=== PATIENT | male | born 1980 | race Caucasian/White ===

== ENCOUNTER 2019-04-24 13:20 | Emergency (ER) | payer MEDICAID, SELFPAY ==
[2019-04-24 12:48] VITALS: BP 116/69; PULSE 58; RESP 18; O2SAT 99; BMI 18.2
--- NOTE | 2019-04-24 12:52 | ED_ITS ---
Entered by [id number], acting as scribe for Zoie Gutierrez Apr 24, 2019 13:20 HPI - General Adult General: Chief complaint: Seizure Stated complaint: seizures Time Seen by Provider: 04/24/19 12:55 PFSH ED PFSH: Statuses (acute, chronic, etc) shown below reflect problem list status as previously entered and may not be historically accurate Social History Smoking and tobacco status: current every day smoker Course Vital Signs: Vital signs: Vital Signs Pulse Rate 58 L 04/24/19 12:48 Respiratory Rate 18 04/24/19 12:48 Blood Pressure 116/69 04/24/19 12:48 Pulse Oximetry 99 04/24/19 12:48 MDM - General Adult Lab Data: Labs: Lab Results 04/24/19 04/24/19 04/24/19 Range/Units 13:28 13:28 13:37 WBC 9.7 (4.0-10.0) 10^3/ uL RBC 5.46 H (4.1-5.3) 10^6/u L Hgb 17.1 H (11.7-16.6) g/dL Hct 50.1 (42.0-52.0) % MCV 91.8 (80-94) fL MCH 31.3 (28.0-34.0) pg MCHC 34.1 (30.0-36.0) g/dL RDW 13.3 (12.1-15.1) % Plt Count 168 (130-400) 10^3/c mm MPV 10.4 (7.4-10.4) fL Neut % (Auto) 75.4 % Lymph % (Auto) 15.1 % [place] % (Auto) 7.7 % Eos % (Auto) 0.9 % Baso % (Auto) 0.6 % Neut # (Auto) 7.3 (1.8-7.7) 10^3/u L Lymph # (Auto) 1.5 (0.8-4.8) 10^3/u L [place] # (Auto) 0.8 (0.2-0.9) 10^3/u L Eos # (Auto) 0.1 (0.0-0.8) 10^3/u L Baso # (Auto) 0.1 (0.0-0.1) 10^3/u L Nucleated RBC % (a uto) 0 % Nucleated RBCs # 0.0 /100WBC Sodium (136-145) mmol/L Potassium (3.5-5.1) mmol/L Chloride (98-107) mmol/L Carbon Dioxide (22-29) mmol/L Anion Gap (5-19) BUN (6-20) mg/dL Creatinine (0.7-1.2) mg/dL GFR Calculation (90-130) mL/min Glucose (74-109) mg/dL Calcium (8.6-10.0) mg/Dl Magnesium (1.7-2.3) mg/dL Total Bilirubin (0.15-1.2) mg/dL AST (0-40) U/L ALT (0-41) U/L Alkaline Phosphata se (40-130) IU/L Total Protein (6.6-8.7) g/dL Albumin (3.5-5.2) g/dL Globulin (1.3-4.6) g/dL Urine Color Yellow (Yellow) Urine Appearance Clear (CLEAR) Urine pH 8 H (5-7) Ur Specific Gravit y 1.010 (1.005-1.030) Urine Protein Neg (Negative) Urine Glucose (UA) Norm (Normal) Urine Ketones Negative (Negative) Urine Occult Blood Neg (Negative) Urine Nitrate Negative (Negative) Urine Bilirubin Neg (NEGATIVE) Prot Sulfosalicyli c Acd Negative Urine Urobilinogen Norm (Negative) mg/dL Ur Leukocyte Lila ase Negative (Negative) Urine Opiates Scre en Negative (Negative) ng/mL Ur Barbiturates Sc reen Negative (Negative) ng/mL Valproic Acid (50-100) mcg/mL Ur Phencyclidine S crn Negative (Negative) ng/mL Ur Amphetamines Sc reen Negative (Negative) ng/mL U Benzodiazepines Scrn Negative (Negative) ng/mL Urine Cocaine Scre en Negative (Negative) ng/mL U Marijuana (THC) Screen Positive H (Negative) ng/mL Ethyl Alcohol (0-10) mg/dL 04/24/19 Range/Units 13:37 WBC (4.0-10.0) 10^3/ uL RBC (4.1-5.3) 10^6/u L Hgb (11.7-16.6) g/dL Hct (42.0-52.0) % MCV (80-94) fL MCH (28.0-34.0) pg MCHC (30.0-36.0) g/dL RDW (12.1-15.1) % Plt Count (130-400) 10^3/c mm MPV (7.4-10.4) fL Neut % (Auto) % Lymph % (Auto) % [place] % (Auto) % Eos % (Auto) % Baso % (Auto) % Neut # (Auto) (1.8-7.7) 10^3/u L Lymph # (Auto) (0.8-4.8) 10^3/u L [place] # (Auto) (0.2-0.9) 10^3/u L Eos # (Auto) (0.0-0.8) 10^3/u L Baso # (Auto) (0.0-0.1) 10^3/u L Nucleated RBC % (a uto) % Nucleated RBCs # /100WBC Sodium 138 (136-145) mmol/L Potassium 4.1 (3.5-5.1) mmol/L Chloride 100 (98-107) mmol/L Carbon Dioxide 27 (22-29) mmol/L Anion Gap 15.1 (5-19) BUN 9 (6-20) mg/dL Creatinine 0.7 (0.7-1.2) mg/dL GFR Calculation 124.3 (90-130) mL/min Glucose 98 (74-109) mg/dL Calcium 10.1 H (8.6-10.0) mg/Dl Magnesium 2.2 (1.7-2.3) mg/dL Total Bilirubin 0.3 (0.15-1.2) mg/dL AST 14 (0-40) U/L ALT 8 (0-41) U/L Alkaline Phosphata se 86 (40-130) IU/L Total Protein 7.5 (6.6-8.7) g/dL Albumin 5.0 (3.5-5.2) g/dL Globulin 2.5 (1.3-4.6) g/dL Urine Color (Yellow) Urine Appearance (CLEAR) Urine pH (5-7) Ur Specific Gravit y (1.005-1.030) Urine Protein (Negative) Urine Glucose (UA) (Normal) Urine Ketones (Negative) Urine Occult Blood (Negative) Urine Nitrate (Negative) Urine Bilirubin (NEGATIVE) Prot Sulfosalicyli c Acd Urine Urobilinogen (Negative) mg/dL Ur Leukocyte Lila ase (Negative) Urine Opiates Scre en (Negative) ng/mL Ur Barbiturates Sc reen (Negative) ng/mL Valproic Acid 54.8 (50-100) mcg/mL Ur Phencyclidine S crn (Negative) ng/mL Ur Amphetamines Sc reen (Negative) ng/mL U Benzodiazepines Scrn (Negative) ng/mL Urine Cocaine Scre en (Negative) ng/mL U Marijuana (THC) Screen (Negative) ng/mL Ethyl Alcohol < 10 (0-10) mg/dL Coding Level of Care Code ED Test Case Developer for Wes Lombardo The documentation recorded by the niles, [id number], accurately reflects the service I personally performed and the decisions made by Matt mcdaniel Eli N Apr 24, 2019 13:20
--- NOTE | 2019-04-24 13:09 | ED_ITS ---
Entered by Francheska Ramirez, acting as scribe for Zoie Gutierrez HPI - Seizure General: Chief Complaint: Seizure Stated Complaint: seizures Time Seen by Provider: 04/24/19 12:55 Source: patient Mode of arrival: EMS Limitations: no limitations History of Present Illness: HPI Narrative: 39 yo male presents to ED with complaints of a seizure. The patient states he had one in the middle of the night and another one just prior to arrival today. The patient said he messed up his medications and he subsequently had 2 seizures. MD complaint: seizure Onset (ago): hour(s) Trauma: No Seizure History: Yes Associated symptoms: Deny chest pain, chills, confusion, diaphoresis, fever(s), malaise or syncope Review of Systems General: Reports: other (negative unless marked) Const: Denies: fever, chills, body aches, fatigue, malaise or diaphoresis Eyes: Denies: change in vision or blurry vision ENMT: Denies: throat pain, painful swallowing, hoarseness, ear pain, ear discharge, Change in hearing or nasal discharge Card: Denies: chest pain, palpitations, irregular heart rhythm, syncope, pre- syncope, shortness of breath on exertion or shortness of breath when lying down Resp: Denies: shortness of breath, productive cough, non-productive cough, wheezing, coughing up blood or chest congestion GI: Denies: abdominal pain, nausea, vomiting, vomiting blood, coffee grounds in vomit, diarrhea, constipation, cramping, blood in stool or black tarry stool : Denies: flank pain, difficulty urinating, painful urination, urinary frequency, urinary urgency, decreased urine ouput, urinary incontinence or blood in urine Musc: Denies: neck pain, back pain, extremity pain, extremity swelling, joint pain, joint swelling, joint warmth or joint stiffness Skin/Breast: Denies: rash, skin tenderness or yellow skin Neuro: Reports: headache; Denies: numbness in extremities, weakness in extremities, changes in sensation, lack of coordination, difficulty walking, dizziness, vertigo or confusion Endo: Denies: excessive thirst, tired all the time, cold intolerance, excessive sweating, flushing or hot flashes Ronn/Lymph: Denies: easy bruising, easy bleeding, petechiae or enlarged lymph nodes All/Imm: Denies: hives, throat swelling, tongue swelling, facial swelling or acute wheezing PFSH ED PFSH: Statuses (acute, chronic, etc) shown below reflect problem list status as previously entered and may not be historically accurate Social History Smoking and tobacco status: current every day smoker Physical Exam Const: COMMON NORMALS: no apparent distress, oriented x3, no limitations, healthy appearing and well nourished EXAM LIMITATIONS: no altered mental status GENERAL APPEARANCE: cooperative, well kempt and well developed ORIENTATION/CONSCIOUSNESS: Yes awake HENMT: COMMON NORMALS: normocephalic, head/scalp atraumatic, hearing grossly normal bilaterally, external ears normal, EAC's normal, external nose normal and moist oral mucous membranes HEAD & SCALP: normal to inspection, normocephalic and atraumatic FACE & SINUS: normal facial exam and face symmetric NOSE: external nose normal and nares normal EXTERNAL EAR: Yes external ears normal EXTERNAL AUDITORY CANAL: EAC's normal MOUTH: oral and palatal mucosa normal and tongue normal Eye: COMMON NORMALS: PERRL, EOMs intact bilaterally, conjunctivae normal and no scleral icterus GENERAL EYE: normal appearance of both eyes and normal light reflex CONJUNCTIVA: Yes conjunctivae normal SCLERA: sclerae normal CORNEA: Yes corneas normal PUPIL: Yes PERRL DIRECT OPHTHALMOSCOPY: Yes normal light reflex Neck/C-Spine: COMMON NORMALS: full ROM, no lymphadenopathy, supple, no meningeal signs and no JVD GENERAL: Yes normal visual inspection and Yes trachea midline CERVICAL SPINE: Yes cervical ROM normal Chest: COMMONS NORMALS: inspection of chest normal and palpation of chest normal Resp: COMMON NORMALS: normal respiratory effort, no retractions, no use of accessory muscles and clear to auscultation bilaterally EFFORT & INSPECTION: Yes able to speak in complete sentences AUSCULTATION: clear to auscultation bilaterally Cardio: COMMON NORMALS: no JVD, regular rate, regular rhythm, S1 normal heart sound, S2 normal heart sound, no gallops, no clicks, no murmurs and no rub JUGULAR VENOUS DISTENTION: no JVD RATE: regular rate RHYTHM: regular rhythm HEART SOUNDS: S1 normal and S2 normal GI: COMMON NORMALS: soft to palpation, non-tender, no hepatosplenomegaly and no masses INSPECTION: Yes normal to inspection PALPATION: Yes soft and Yes no hepatosplenomegaly : COMMON NORMALS: Yes no CVA tenderness BLADDER/KIDNEY EXAM: Yes no CVA tenderness Back/Pelvis: COMMON NORMALS: no CVA tenderness, thoracic and lumbar spine normal to inspection, no thoracic nor lumbar tenderness and thoraco-lumbar ROM normal Extremity: COMMON NORMALS: normal to inspection, full ROM, normal capillary refill, no joint enlargement, no clubbing, cyanosis or edema and no calf tenderness Neuro: COMMON NORMALS: oriented x3, CN's II-XII intact bilaterally, moves all extremities, no focal motor deficits and no sensory deficits noted MENINGEAL SIGNS: Yes no meningeal signs Psych: COMMON NORMALS: mental status grossly normal, thought process normal, cooperative, affect normal, speech normal and activity/motor behavior normal APPEARANCE: Yes well kempt SPEECH: Yes normal speech THOUGHT PROCESS: normal thought process Skin: COMMON NORMALS: no rashes or lesions noted, skin turgor normal, no jaundice, no petechiae and no mottling GENERAL SKIN EXAM: no rashes or lesions noted and turgor normal Course Vital Signs: Vital signs: Vital Signs Pulse Rate 58 L 04/24/19 12:48 Respiratory Rate 18 04/24/19 12:48 Blood Pressure 116/69 04/24/19 12:48 Pulse Oximetry 99 04/24/19 12:48 MDM - Seizure MDM Narrative: Medical decision making narrative: Hugh comes in after he had a breakthrough seizure today. He is uncertain whether he took his medications appropriately and he has been going without sleep. He has no neurologic deficit this time I do not believe a CT scan to be indicated. He denies any other injuries or pain. He is feeling better at this time would like to go home. I did give him a milligram of Ativan to help ashley any recurrent seizures. He agrees to follow-up with Dr. Villalobos. I see no other sign or symptom of acute life-threatening problem. He will follow-up as directed or return here if needed. Lab Data: Attestation: I reviewed the patient's lab results. Labs: Lab Results 04/24/19 04/24/19 04/24/19 Range/Units 13:28 13:28 13:37 WBC 9.7 (4.0-10.0) 10^3/ uL RBC 5.46 H (4.1-5.3) 10^6/u L Hgb 17.1 H (11.7-16.6) g/dL Hct 50.1 (42.0-52.0) % MCV 91.8 (80-94) fL MCH 31.3 (28.0-34.0) pg MCHC 34.1 (30.0-36.0) g/dL RDW 13.3 (12.1-15.1) % Plt Count 168 (130-400) 10^3/c mm MPV 10.4 (7.4-10.4) fL Neut % (Auto) 75.4 % Lymph % (Auto) 15.1 % [place] % (Auto) 7.7 % Eos % (Auto) 0.9 % Baso % (Auto) 0.6 % Neut # (Auto) 7.3 (1.8-7.7) 10^3/u L Lymph # (Auto) 1.5 (0.8-4.8) 10^3/u L [place] # (Auto) 0.8 (0.2-0.9) 10^3/u L Eos # (Auto) 0.1 (0.0-0.8) 10^3/u L Baso # (Auto) 0.1 (0.0-0.1) 10^3/u L Nucleated RBC % (a uto) 0 % Nucleated RBCs # 0.0 /100WBC Sodium (136-145) mmol/L Potassium (3.5-5.1) mmol/L Chloride (98-107) mmol/L Carbon Dioxide (22-29) mmol/L Anion Gap (5-19) BUN (6-20) mg/dL Creatinine (0.7-1.2) mg/dL GFR Calculation (90-130) mL/min Glucose (74-109) mg/dL Calcium (8.6-10.0) mg/Dl Magnesium (1.7-2.3) mg/dL Total Bilirubin (0.15-1.2) mg/dL AST (0-40) U/L ALT (0-41) U/L Alkaline Phosphata se (40-130) IU/L Total Protein (6.6-8.7) g/dL Albumin (3.5-5.2) g/dL Globulin (1.3-4.6) g/dL Urine Color Yellow (Yellow) Urine Appearance Clear (CLEAR) Urine pH 8 H (5-7) Ur Specific Gravit y 1.010 (1.005-1.030) Urine Protein Neg (Negative) Urine Glucose (UA) Norm (Normal) Urine Ketones Negative (Negative) Urine Occult Blood Neg (Negative) Urine Nitrate Negative (Negative) Urine Bilirubin Neg (NEGATIVE) Prot Sulfosalicyli c Acd Negative Urine Urobilinogen Norm (Negative) mg/dL Ur Leukocyte Lila ase Negative (Negative) Urine Opiates Scre en Negative (Negative) ng/mL Ur Barbiturates Sc reen Negative (Negative) ng/mL Valproic Acid (50-100) mcg/mL Ur Phencyclidine S crn Negative (Negative) ng/mL Ur Amphetamines Sc reen Negative (Negative) ng/mL U Benzodiazepines Scrn Negative (Negative) ng/mL Urine Cocaine Scre en Negative (Negative) ng/mL U Marijuana (THC) Screen Positive H (Negative) ng/mL Ethyl Alcohol (0-10) mg/dL 04/24/19 Range/Units 13:37 WBC (4.0-10.0) 10^3/ uL RBC (4.1-5.3) 10^6/u L Hgb (11.7-16.6) g/dL Hct (42.0-52.0) % MCV (80-94) fL MCH (28.0-34.0) pg MCHC (30.0-36.0) g/dL RDW (12.1-15.1) % Plt Count (130-400) 10^3/c mm MPV (7.4-10.4) fL Neut % (Auto) % Lymph % (Auto) % [place] % (Auto) % Eos % (Auto) % Baso % (Auto) % Neut # (Auto) (1.8-7.7) 10^3/u L Lymph # (Auto) (0.8-4.8) 10^3/u L [place] # (Auto) (0.2-0.9) 10^3/u L Eos # (Auto) (0.0-0.8) 10^3/u L Baso # (Auto) (0.0-0.1) 10^3/u L Nucleated RBC % (a uto) % Nucleated RBCs # /100WBC Sodium 138 (136-145) mmol/L Potassium 4.1 (3.5-5.1) mmol/L Chloride 100 (98-107) mmol/L Carbon Dioxide 27 (22-29) mmol/L Anion Gap 15.1 (5-19) BUN 9 (6-20) mg/dL Creatinine 0.7 (0.7-1.2) mg/dL GFR Calculation 124.3 (90-130) mL/min Glucose 98 (74-109) mg/dL Calcium 10.1 H (8.6-10.0) mg/Dl Magnesium 2.2 (1.7-2.3) mg/dL Total Bilirubin 0.3 (0.15-1.2) mg/dL AST 14 (0-40) U/L ALT 8 (0-41) U/L Alkaline Phosphata se 86 (40-130) IU/L Total Protein 7.5 (6.6-8.7) g/dL Albumin 5.0 (3.5-5.2) g/dL Globulin 2.5 (1.3-4.6) g/dL Urine Color (Yellow) Urine Appearance (CLEAR) Urine pH (5-7) Ur Specific Gravit y (1.005-1.030) Urine Protein (Negative) Urine Glucose (UA) (Normal) Urine Ketones (Negative) Urine Occult Blood (Negative) Urine Nitrate (Negative) Urine Bilirubin (NEGATIVE) Prot Sulfosalicyli c Acd Urine Urobilinogen (Negative) mg/dL Ur Leukocyte Lila ase (Negative) Urine Opiates Scre en (Negative) ng/mL Ur Barbiturates Sc reen (Negative) ng/mL Valproic Acid 54.8 (50-100) mcg/mL Ur Phencyclidine S crn (Negative) ng/mL Ur Amphetamines Sc reen (Negative) ng/mL U Benzodiazepines Scrn (Negative) ng/mL Urine Cocaine Scre en (Negative) ng/mL U Marijuana (THC) Screen (Negative) ng/mL Ethyl Alcohol < 10 (0-10) mg/dL Imaging Data^: CXR: My impression: No acute cardiopulmonary findings. Discharge Plan Discharge Patient Disposition: Home, Self-Care Clinical Impression: Generalized seizure Condition: Stable Prescriptions: No Action divalproex 500 mg tablet extended release 24 hr 1,000 mg PO DAILY RF: 0 levetiracetam 1,000 mg tablet 1,000 mg PO BID RF: 0 Discharge Orders: Discharge Order (Routine); Ordered 04/24/19 Ordered By: Zoie Gutierrez Referrals: Jatinder Bryan [Primary Care Provider] - Discharge Diet: Usual diet Discharge Activity: Resume usual activity Patient Instructions: Epilepsy (ED) Activity Restrictions/Additional Instructions: No driving, no tub baths, no swimming alone, no working at heights, no operating machinery or anything else that would put you or anyone else at risk should you have another seizure. Be certain to take your seizure medications as prescribed and follow-up with Dr. Villalobos for further evaluation and care. Coding Level of Care Code ED Roofer for Chg Fwd Exam Problem Focused The documentation recorded by the Ashley cage Valerie R, accurately reflects the service I personally performed and the decisions made by , Zoie Gutierrez
--- NOTE | 2019-04-24 13:11 | XR_ITS ---
WS: [id number] Portable AP upright chest, 04/24/2019 Clinical Data: INJURY Comparison: Portable chest, 10/20/2018. Findings: No nodules, masses or effusions are seen. The heart is normal. The pulmonary vascularity is not increased. No pneumonia or pneumothorax is seen. Negative chest. XR/XR chest 1V portable [id number] Impression:
--- NOTE | 2019-04-24 13:33 | PC.NURSE ---
pt resting in bed, provided urine sample. UA sent to lab. family at bedside, states no further needs at this time.
[2019-04-24 13:50] LABS: Basophils # 0.1 10^3/uL (0.0-0.1); Basophils % 0.6 %; Eosinophils # 0.1 10^3/uL (0.0-0.8); Eosinophils % 0.9 %; Hematocrit 50.1 % (42.0-52.0); Hemoglobin 17.1 g/dL (11.7-16.6); Lymphocytes # 1.5 10^3/uL (0.8-4.8); Lymphocytes % 15.1 %; Mean Corpuscular HGB Conc 34.1 g/dL (30.0-36.0); Mean Corpuscular Hemoglobin 31.3 pg (28.0-34.0); Mean Corpuscular Volume 91.8 fL (80-94); Mean Platelet Volume 10.4 fL (7.4-10.4); Monocytes # 0.8 10^3/uL (0.2-0.9); Monocytes % 7.7 %; Neutrophils # 7.3 10^3/uL (1.8-7.7); Neutrophils % 75.4 %; Nucleated Red Blood Cells % 0 %; Platelet Count 168 10^3/cmm (130-400); Red Blood Count 5.46 10^6/uL (4.1-5.3); Red Cell Distribution Width 13.3 % (12.1-15.1); White Blood Count 9.7 10^3/uL (4.0-10.0)
[2019-04-24 13:53] LABS: Add Urine Microscopic? NO
[2019-04-24 14:07] LABS: Alanine Aminotransferase 8 U/L (0-41); Alkaline Phosphatase 86 IU/L (40-130); Anion Gap 15.1 (5-19); Aspartate Amino Transferase 14 U/L (0-40); Blood Urea Nitrogen 9 mg/dL (6-20); Calcium 10.1 mg/Dl (8.6-10.0); Carbon Dioxide 27 mmol/L (22-29); Chloride 100 mmol/L (98-107); Globulin 2.5 g/dL (1.3-4.6); Glomerular Filtration Rate 124.3 mL/min (90-130); Glucose 98 mg/dL (74-109); Magnesium 2.2 mg/dL (1.7-2.3); Potassium 4.1 mmol/L (3.5-5.1); Sodium 138 mmol/L (136-145); Total Bilirubin 0.3 mg/dL (0.15-1.2); Total Protein 7.5 g/dL (6.6-8.7); Valproic Acid Level 54.8 mcg/mL (50-100)
[2019-04-24 14:15] LABS: Alcohol Level < 10 mg/dL (0-10)
[2019-04-24] MEDS: LORazepam 2 mg/mL INJ 1 mL 1 MG IVP (14:16)
[2019-04-24 14:18] LABS: Bilirubin Urine Neg (NEGATIVE); Blood Urine Neg (Negative); Glucose Urine UA Norm (Normal); Ketones Urine Negative (Negative); Leukocyte Esterase Urine Negative (Negative); Nitrate Urine Negative (Negative); Protein Urine Neg (Negative); Sulfosalicylic Acid Urine Negative; Urine Appearance Clear (CLEAR); Urine Color Yellow (Yellow); Urobilinogen Urine Norm (Negative); pH Urine 8 (5-7)
[2019-04-24] MEDS: sodium chloride 0.9% 1,000 ML 999 ML IV (14:18)
[2019-04-24 14:25] LABS: Amphetamines Screen Urine Negative (Negative); Barbiturates Screen Urine Negative (Negative); Benzodiazepines Screen Urine Negative (Negative); Cocaine Screen Urine Negative (Negative); Opiate Screen Urine Negative (Negative); PCP Screen Urine Negative (Negative); THC Screen Urine Positive (Negative)
--- NOTE | 2019-04-24 14:49 | W.ED.SEIZURE ---
HPI - Seizure General: Chief Complaint: Seizure Stated Complaint: seizures Time Seen by Provider: 04/24/19 12:55 History of Present Illness: Trauma: No Seizure History: Yes PFSH ED PFSH: Statuses (acute, chronic, etc) shown below reflect problem list status as previously entered and may not be historically accurate Social History Smoking and tobacco status: current every day smoker Course Vital Signs: Vital signs: Vital Signs Pulse Rate 74 04/24/19 16:06 Respiratory Rate 16 04/24/19 16:06 Blood Pressure 115/87 04/24/19 16:06 Pulse Oximetry 98 04/24/19 16:06 MDM - Seizure Lab Data: Attestation: I reviewed the patient's lab results. Labs: Lab Results 04/24/19 04/24/19 04/24/19 Range/Units 13:28 13:28 13:37 WBC 9.7 (4.0-10.0) 10^3/ uL RBC 5.46 H (4.1-5.3) 10^6/u L Hgb 17.1 H (11.7-16.6) g/dL Hct 50.1 (42.0-52.0) % MCV 91.8 (80-94) fL MCH 31.3 (28.0-34.0) pg MCHC 34.1 (30.0-36.0) g/dL RDW 13.3 (12.1-15.1) % Plt Count 168 (130-400) 10^3/c mm MPV 10.4 (7.4-10.4) fL Neut % (Auto) 75.4 % Lymph % (Auto) 15.1 % [place] % (Auto) 7.7 % Eos % (Auto) 0.9 % Baso % (Auto) 0.6 % Neut # (Auto) 7.3 (1.8-7.7) 10^3/u L Lymph # (Auto) 1.5 (0.8-4.8) 10^3/u L [place] # (Auto) 0.8 (0.2-0.9) 10^3/u L Eos # (Auto) 0.1 (0.0-0.8) 10^3/u L Baso # (Auto) 0.1 (0.0-0.1) 10^3/u L Nucleated RBC % (a uto) 0 % Nucleated RBCs # 0.0 /100WBC Sodium (136-145) mmol/L Potassium (3.5-5.1) mmol/L Chloride (98-107) mmol/L Carbon Dioxide (22-29) mmol/L Anion Gap (5-19) BUN (6-20) mg/dL Creatinine (0.7-1.2) mg/dL GFR Calculation (90-130) mL/min Glucose (74-109) mg/dL Calcium (8.6-10.0) mg/Dl Magnesium (1.7-2.3) mg/dL Total Bilirubin (0.15-1.2) mg/dL AST (0-40) U/L ALT (0-41) U/L Alkaline Phosphata se (40-130) IU/L Total Protein (6.6-8.7) g/dL Albumin (3.5-5.2) g/dL Globulin (1.3-4.6) g/dL Urine Color Yellow (Yellow) Urine Appearance Clear (CLEAR) Urine pH 8 H (5-7) Ur Specific Gravit y 1.010 (1.005-1.030) Urine Protein Neg (Negative) Urine Glucose (UA) Norm (Normal) Urine Ketones Negative (Negative) Urine Occult Blood Neg (Negative) Urine Nitrate Negative (Negative) Urine Bilirubin Neg (NEGATIVE) Prot Sulfosalicyli c Acd Negative Urine Urobilinogen Norm (Negative) mg/dL Ur Leukocyte Lila ase Negative (Negative) Urine Opiates Scre en Negative (Negative) ng/mL Ur Barbiturates Sc reen Negative (Negative) ng/mL Valproic Acid (50-100) mcg/mL Ur Phencyclidine S crn Negative (Negative) ng/mL Ur Amphetamines Sc reen Negative (Negative) ng/mL U Benzodiazepines Scrn Negative (Negative) ng/mL Urine Cocaine Scre en Negative (Negative) ng/mL U Marijuana (THC) Screen Positive H (Negative) ng/mL Ethyl Alcohol (0-10) mg/dL 04/24/19 Range/Units 13:37 WBC (4.0-10.0) 10^3/ uL RBC (4.1-5.3) 10^6/u L Hgb (11.7-16.6) g/dL Hct (42.0-52.0) % MCV (80-94) fL MCH (28.0-34.0) pg MCHC (30.0-36.0) g/dL RDW (12.1-15.1) % Plt Count (130-400) 10^3/c mm MPV (7.4-10.4) fL Neut % (Auto) % Lymph % (Auto) % [place] % (Auto) % Eos % (Auto) % Baso % (Auto) % Neut # (Auto) (1.8-7.7) 10^3/u L Lymph # (Auto) (0.8-4.8) 10^3/u L [place] # (Auto) (0.2-0.9) 10^3/u L Eos # (Auto) (0.0-0.8) 10^3/u L Baso # (Auto) (0.0-0.1) 10^3/u L Nucleated RBC % (a uto) % Nucleated RBCs # /100WBC Sodium 138 (136-145) mmol/L Potassium 4.1 (3.5-5.1) mmol/L Chloride 100 (98-107) mmol/L Carbon Dioxide 27 (22-29) mmol/L Anion Gap 15.1 (5-19) BUN 9 (6-20) mg/dL Creatinine 0.7 (0.7-1.2) mg/dL GFR Calculation 124.3 (90-130) mL/min Glucose 98 (74-109) mg/dL Calcium 10.1 H (8.6-10.0) mg/Dl Magnesium 2.2 (1.7-2.3) mg/dL Total Bilirubin 0.3 (0.15-1.2) mg/dL AST 14 (0-40) U/L ALT 8 (0-41) U/L Alkaline Phosphata se 86 (40-130) IU/L Total Protein 7.5 (6.6-8.7) g/dL Albumin 5.0 (3.5-5.2) g/dL Globulin 2.5 (1.3-4.6) g/dL Urine Color (Yellow) Urine Appearance (CLEAR) Urine pH (5-7) Ur Specific Gravit y (1.005-1.030) Urine Protein (Negative) Urine Glucose (UA) (Normal) Urine Ketones (Negative) Urine Occult Blood (Negative) Urine Nitrate (Negative) Urine Bilirubin (NEGATIVE) Prot Sulfosalicyli c Acd Urine Urobilinogen (Negative) mg/dL Ur Leukocyte Lila ase (Negative) Urine Opiates Scre en (Negative) ng/mL Ur Barbiturates Sc reen (Negative) ng/mL Valproic Acid 54.8 (50-100) mcg/mL Ur Phencyclidine S crn (Negative) ng/mL Ur Amphetamines Sc reen (Negative) ng/mL U Benzodiazepines Scrn (Negative) ng/mL Urine Cocaine Scre en (Negative) ng/mL U Marijuana (THC) Screen (Negative) ng/mL Ethyl Alcohol < 10 (0-10) mg/dL Discharge Plan Discharge Patient Disposition: Home, Self-Care Clinical Impression: Generalized seizure Condition: Stable Prescriptions: No Action divalproex 500 mg tablet extended release 24 hr 1,000 mg PO DAILY RF: 0 levetiracetam 1,000 mg tablet 1,000 mg PO BID RF: 0 Discharge Orders: Discharge Order (Routine); Ordered 04/24/19 Ordered By: Zoie Gutierrez Referrals: Jatinder Bryan [Primary Care Provider] - Patient Instructions: Epilepsy (ED) Activity Restrictions/Additional Instructions: No driving, no tub baths, no swimming alone, no working at heights, no operating machinery or anything else that would put you or anyone else at risk should you have another seizure. Be certain to take your seizure medications as prescribed and follow-up with Dr. Villalobos for further evaluation and care. Discharge Date/Time: 04/24/19 16:08 Coding Level of Care Code ED Assistant Portfolio Manager for Wes Lombardo
[2019-04-24 16:06] VITALS: BP 115/87; PULSE 74; RESP 16; O2SAT 98
--- NOTE | 2019-04-25 09:33 | DCPLANNER ---
sales service manager had message to schedule a follow up appointment for patient with Dr. Villalobos. sales service manager called the office of Dr. Villalobos, spoke with Shari, a follow up appointment is scheduled for Sunday, June 18, 2019 at 1:15.
--- NOTE | 2019-06-26 09:14 | DCPLANNER ---
Patient did attend appointment scheduled for 06.18.[address] Villalobos.
== END 2019-04-24 16:08 | disposition home or self-care (01) ==
PROVIDERS: Emergency Provider Emergency Medicine; Family Provider Physician Assistant Medical; PCP Physician Assistant Medical
DX: G40.89 Other seizures (principal); F17.210 Nicotine dependence, cigarettes, uncomplicated
CPT/HCPCS: 36415; 71045; 80053; 80164; 80307; 81003; 83735; 85025; 96360; 96374; 99283; A9270; J2060; J7030

== ENCOUNTER → 2019-06-18 12:52 | Outpatient (BNVA) | payer MEDICAID, SELFPAY | PROVIDERS: Family Provider Physician Assistant Medical; PCP Physician Assistant Medical; Visit Provider Specialist | DX: G40.109 Localization-related (focal) (partial) symptomatic epilepsy and epileptic syndromes with simple partial seizures, not intractable, without status epilepticus (principal); F17.210 Nicotine dependence, cigarettes, uncomplicated | CPT/HCPCS: 99213 ==

== ENCOUNTER → 2019-09-09 08:48 | Outpatient (BNVA) | payer MEDICAID, SELFPAY | PROVIDERS: Family Provider Physician Assistant Medical; PCP Physician Assistant Medical; Visit Provider Specialist | DX: G40.109 Localization-related (focal) (partial) symptomatic epilepsy and epileptic syndromes with simple partial seizures, not intractable, without status epilepticus (principal); M79.642 Pain in left hand; F17.210 Nicotine dependence, cigarettes, uncomplicated | CPT/HCPCS: 99213 ==

== ENCOUNTER → 2019-09-18 09:53 | Outpatient (BNVA) | payer MEDICAID, SELFPAY | PROVIDERS: Family Provider Physician Assistant Medical; PCP Physician Assistant Medical; Visit Provider Specialist | DX: M79.641 Pain in right hand (principal); F17.210 Nicotine dependence, cigarettes, uncomplicated | CPT/HCPCS: 95908 ==

== ENCOUNTER → 2019-11-25 08:00 | Outpatient (BNVA) | payer MEDICAID, SELFPAY | PROVIDERS: Family Provider Physician Assistant Medical; PCP Physician Assistant Medical; Visit Provider Specialist | DX: G40.109 Localization-related (focal) (partial) symptomatic epilepsy and epileptic syndromes with simple partial seizures, not intractable, without status epilepticus (principal) | CPT/HCPCS: 99214 ==

== ENCOUNTER 2019-11-25 09:34 | Outpatient (CLI) | payer MEDICAID, SELFPAY ==
[2019-11-28 15:50] LABS: Levetiracetam Keppra 44.9 mcg/mL
== END 2019-11-25 09:35 | disposition home or self-care (01) ==
LOC: LAB 09:36
PROVIDERS: PCP Physician Assistant Medical; Visit Provider Specialist
DX: G40.109 Localization-related (focal) (partial) symptomatic epilepsy and epileptic syndromes with simple partial seizures, not intractable, without status epilepticus (principal)
CPT/HCPCS: 80164; 80177; 85025

== ENCOUNTER → 2019-12-09 09:45 | Outpatient (BNVA) | payer MEDICAID, SELFPAY | PROVIDERS: PCP Physician Assistant Medical; Referring Provider Specialist; Visit Provider Specialist | DX: G40.909 Epilepsy, unspecified, not intractable, without status epilepticus (principal) | CPT/HCPCS: 95816 ==

== ENCOUNTER → 2020-06-16 09:45 | Outpatient (BNVA) | payer MEDICAID, SELFPAY | PROVIDERS: PCP Physician Assistant Medical; Visit Provider Specialist | DX: G40.109 Localization-related (focal) (partial) symptomatic epilepsy and epileptic syndromes with simple partial seizures, not intractable, without status epilepticus (principal); F17.210 Nicotine dependence, cigarettes, uncomplicated | CPT/HCPCS: 99214 ==

== ENCOUNTER → 2020-11-17 10:27 | Outpatient (BNVA) | payer MEDICAID, SELFPAY | PROVIDERS: PCP Physician Assistant Medical; Visit Provider Specialist | DX: G40.109 Localization-related (focal) (partial) symptomatic epilepsy and epileptic syndromes with simple partial seizures, not intractable, without status epilepticus (principal); R51.9 Headache, unspecified; F41.9 Anxiety disorder, unspecified; F17.210 Nicotine dependence, cigarettes, uncomplicated | CPT/HCPCS: 99214; 99215 ==

== ENCOUNTER → 2021-02-15 09:40 | Outpatient (BNVA) | payer MEDICAID, SELFPAY | PROVIDERS: PCP Physician Assistant Medical; Visit Provider Specialist | DX: G43.909 Migraine, unspecified, not intractable, without status migrainosus (principal); G40.109 Localization-related (focal) (partial) symptomatic epilepsy and epileptic syndromes with simple partial seizures, not intractable, without status epilepticus; F41.9 Anxiety disorder, unspecified; F32.A Depression, unspecified; A15.9 Respiratory tuberculosis unspecified; S81.002A Unspecified open wound, left knee, initial encounter; S91.002A Unspecified open wound, left ankle, initial encounter; S81.801A Unspecified open wound, right lower leg, initial encounter; F17.210 Nicotine dependence, cigarettes, uncomplicated | CPT/HCPCS: 99214; 99215 ==

== ENCOUNTER 2021-03-25 08:20 | Outpatient (CLI) | payer MEDICAID, SELFPAY | END 2021-03-25 08:21 | disposition home or self-care (01) | LOC: WOUND 08:21 | PROVIDERS: PCP Physician Assistant Medical; Visit Provider Nurse Practitioner Family | DX: E11.622 Type 2 diabetes mellitus with other skin ulcer (principal); L97.821 Non-pressure chronic ulcer of other part of left lower leg limited to breakdown of skin; F17.210 Nicotine dependence, cigarettes, uncomplicated | CPT/HCPCS: 11042; G0463 ==

== ENCOUNTER 2021-05-01 23:40 | Emergency (ER) | payer MEDICAID, SELFPAY ==
[2021-05-01 23:51] VITALS: BP 132/80; PULSE 61; RESP 18; TEMP 36.6; O2SAT 96; BMI 15.3
--- NOTE | 2021-05-02 00:23 | W.ED.PSYCHS ---
HPI - Psych General: Chief Complaint: Psychiatric Symptoms Stated Complaint: 96 hour hold Time Seen by Provider: 05/01/21 23:45 Source: patient and other Mode of arrival: other (police) Limitations: no limitations History of Present Illness: HPI Narrative: 41-year-old male who is here with police for depression. He has multiple medical issues including colon cancer he is on chemo he also has latent tuberculosis. He states he is struggled with depression for quite some time. He states he is not actively suicidal has no specific plan he states that he had made a statement he just did not mind if he did not wake up. He states that he was on antidepressants but they were making him urinate the bed and he stopped. He supposed to be seeing Dr. Villalobos to get cleared for different medication. He denies any worsening improving factors. Associated symptoms: Reports depression Review of Systems Const: Denies: fever(s), chills, body aches or change in appetite Eyes: Denies: blurry vision or eye discomfort ENMT: Denies: throat pain or dental pain Card: Denies: chest pain Resp: Denies: dyspnea GI: Denies: abdominal pain, nausea, vomiting or diarrhea : Denies: dysuria Musc: Denies: neck pain or back pain Skin/Breast: Denies: rash Neuro: Denies: headache(s) Psych: Reports: depression Ronn/Lymph: Denies: easy bruising All/Imm: Denies: urticaria PFSH ED PFSH: Family History Other Cancer Stroke Social History Smoking and tobacco status: current every day smoker (pack a day) cigarettes Smoking risk assessment/counseling performed?: Yes Tobacco counseling given: provider counseling History of recent travel: No Physical Exam Const: COMMON NORMALS: no acute distress, patient oriented x3 and healthy appearing HENMT: COMMON NORMALS: normocephalic and atraumatic HEAD & SCALP: normocephalic and atraumatic Eye: COMMON NORMALS: Equal, round and reactive pupils present and EOMs intact bilaterally PUPIL: Yes Equal, round and reactive pupils present Neck/C-Spine: COMMON NORMALS: full ROM and supple Chest: COMMONS NORMALS: normal inspection of the chest and normal palpation of entire chest wall Resp: COMMON NORMALS: normal respiratory effort, No retractions, No use of accessory muscles and clear to auscultation bilaterally AUSCULTATION: clear to auscultation bilaterally Cardio: COMMON NORMALS: regular rate, regular rhythm and No murmurs present (Cardio) RATE: regular rate RHYTHM: regular rhythm GI: COMMON NORMALS: Normal to inspection, nondistended, normoactive bowel sounds present, Soft to palpation, non-tender and no masses PALPATION: Yes Soft to palpation Extremity: COMMON NORMALS: normal to inspection and full ROM Neuro: COMMON NORMALS: patient oriented x3, moves all extremities and no focal motor deficits Psych: COMMON NORMALS: mental status grossly normal, Normal thought process present and cooperative THOUGHT PROCESS: Normal thought process present Skin: COMMON NORMALS: no rashes or lesions noted and no wounds GENERAL SKIN EXAM: no rashes or lesions noted Course Vital Signs: Vital signs: Vital Signs Temperature 97.9 F 05/01/21 23:51 Pulse Rate 61 05/01/21 23:51 Respiratory Rate 18 05/01/21 23:51 Blood Pressure 132/80 05/01/21 23:51 Pulse Oximetry 96 05/01/21 23:51 MDM - Psych MDM Narrative: Medical decision making narrative: Patient presents here with depression he is not actively suicidal I spoke to Dr. Brewster who is consulted who did a telemetry psych consult and interviewed patient and agrees that he is depressed but not actively suicidal and does not require inpatient management he has multiple support groups if he does have any suicidal ideations he is return he is stable for discharge. Lab Data: Labs: Lab Results 05/01/21 05/02/21 05/02/21 23:51 00:40 00:40 WBC 6.9 10^3/uL 10^3/ uL (4.0-10.0) RBC 5.08 10^6/uL 10^6 /uL (4.1-5.3) Hgb 16.5 g/dL g/dL (11.7-16.6) Hct 46.9 % % (42.0-52.0) MCV 92.3 fl fl (80-94) MCH 32.5 pg pg (28.0-34.0) MCHC 35.2 g/dL g/dL (30.0-36.0) RDW 12.4 % % (12.1-15.1) Plt Count 168 10^3/cmm 10^3 /cmm (130-400) MPV 10.4 fL fL (7.4-10.4) Neut % (Auto) 44.2 % % Lymph % (Auto) 45.7 % % Esmeralda % (Auto) 7.5 % % Eos % (Auto) 1.6 % % Baso % (Auto) 0.9 % % Neut # (Auto) 3.06 10^3/uL 10^3 /uL (1.8-7.7) Lymph # (Auto) 3.2 10^3/uL 10^3/ uL (0.8-4.8) Esmeralda # (Auto) 0.5 10^3/uL 10^3/ uL (0.2-0.9) Eos # (Auto) 0.1 10^3/uL 10^3/ uL (0.0-0.8) Baso # (Auto) 0.1 10^3/uL 10^3/ uL (0.0-0.1) Nucleated RBC % (a uto) 0 % % Nucleated RBCs # 0.0 /100WBC /100W BC Sodium 141 mmol/L mmol/L (136-145) Potassium 4.2 mmol/L mmol/L (3.5-5.1) Chloride 106 mmol/L mmol/L (98-107) Carbon Dioxide 21 mmol/L L mmol/ L (22-29) Anion Gap 18.2 (5-19) BUN 6 mg/dL mg/dL (6-20) Creatinine 0.8 mg/dL mg/dL (0.7-1.2) GFR Calculation 105.5 mL/min mL/m in (90-130) Glucose 85 mg/dL mg/dL (65-115) Calculated Osmolal ity 289 mOsm/kg mOsm/ kg (285-295) Calcium 8.8 mg/dL mg/dL (8.5-10.5) Total Bilirubin 0.4 mg/dL mg/dL (0.15-1.2) AST 19 U/L U/L (0-40) ALT 11 U/L U/L (0-41) Alkaline Phosphata se 89 IU/L IU/L (40-130) Total Protein 6.7 g/dL g/dL (6.6-8.7) Albumin 4.3 g/dL g/dL (3.5-5.2) Globulin 2.4 g/dL g/dL (1.3-4.6) Salicylates < 0.3 mg/dL L mg/ dL (3-10) Urine Opiates Scre en Negative ng/mL ng /mL (Negative) Acetaminophen < 5.0 ug/mL L ug/ mL (10-30) Ur Barbiturates Sc reen Negative ng/mL ng /mL (Negative) Ur Phencyclidine S crn Negative ng/mL ng /mL (Negative) Ur Amphetamines Sc reen Negative ng/mL ng /mL (Negative) U Benzodiazepines Scrn Positive ng/mL H ng/mL (Negative) Urine Cocaine Scre en Negative ng/mL ng /mL (Negative) U Marijuana (THC) Screen Positive ng/mL H ng/mL (Negative) Ethyl Alcohol < 10 mg/dL mg/dL (0-10) Discharge Plan Discharge Patient Disposition: Home Clinical Impression: Depression Qualifiers: Depression Type: unspecified Qualified Code(s): F32.A - Depression, unspecified Condition: Stable Prescriptions: No Action divalproex 500 mg tablet extended release 24 hr See Rx Instructions .ROUTE .COMPLEX Qty: 21 RF: 0 clobazam [Onfi] 20 mg tablet 20 mg PO BID Qty: 90 RF: 3 levetiracetam 1,000 mg tablet See Rx Instructions .ROUTE .COMPLEX Qty: 90 RF: 3 midazolam 5 mg/spray (0.1 mL) spray,non-aerosol 1 spray intranasal ONCE Qty: 1 RF: 3 Ajovy Autoinjector 225 mg/1.5 mL auto-injector See Rx Instructions .ROUTE .COMPLEX Qty: 2 RF: 0 Discharge Orders: Discharge ED (Routine); Ordered 05/02/21 Ordered By: Arianna Finnegan Referrals: Jatinder Bryan [Primary Care Provider] - 1-3 days Discharge Diet: Advance as tolerated Discharge Activity: Resume usual activity Patient Instructions: Depression (ED) Coding Level of Care Code ED Manager [place] for Eving Fwd Exam Comprehensive
[2021-05-02 00:54] LABS: Basophils # 0.1 10^3/uL (0.0-0.1); Basophils % 0.9 %; Eosinophils # 0.1 10^3/uL (0.0-0.8); Eosinophils % 1.6 %; Hematocrit 46.9 % (42.0-52.0); Hemoglobin 16.5 g/dL (11.7-16.6); Lymphocytes # 3.2 10^3/uL (0.8-4.8); Lymphocytes % 45.7 %; Mean Corpuscular HGB Conc 35.2 g/dL (30.0-36.0); Mean Corpuscular Hemoglobin 32.5 pg (28.0-34.0); Mean Corpuscular Volume 92.3 fl (80-94); Mean Platelet Volume 10.4 fL (7.4-10.4); Monocytes # 0.5 10^3/uL (0.2-0.9); Monocytes % 7.5 %; Neutrophils # 3.06 10^3/uL (1.8-7.7); Neutrophils % 44.2 %; Nucleated Red Blood Cells % 0 %; Platelet Count 168 10^3/cmm (130-400); Red Blood Count 5.08 10^6/uL (4.1-5.3); Red Cell Distribution Width 12.4 % (12.1-15.1); White Blood Count 6.9 10^3/uL (4.0-10.0)
[2021-05-02 01:18] LABS: Alanine Aminotransferase 11 U/L (0-41); Albumin Level 4.3 g/dL (3.5-5.2); Alkaline Phosphatase 89 IU/L (40-130); Aspartate Amino Transferase 19 U/L (0-40); Blood Urea Nitrogen 6 mg/dL (6-20); Calcium 8.8 mg/dL (8.5-10.5); Carbon Dioxide 21 mmol/L (22-29); Chloride 106 mmol/L (98-107); Globulin 2.4 g/dL (1.3-4.6); Glomerular Filtration Rate 105.5 mL/min (90-130); Glucose 85 mg/dL (65-115); Osmolality Calculated 289 mOsm/kg (285-295); Sodium 141 mmol/L (136-145); Total Bilirubin 0.4 mg/dL (0.15-1.2); Total Protein 6.7 g/dL (6.6-8.7)
[2021-05-02 01:21] LABS: Acetaminophen < 5.0 ug/mL (10-30); Alcohol Level < 10 mg/dL (0-10); Anion Gap 18.2 (5-19); Potassium 4.2 mmol/L (3.5-5.1); Salicylate < 0.3 mg/dL (3-10)
[2021-05-02 01:46] LABS: Amphetamines Screen Urine Negative (Negative); Barbiturates Screen Urine Negative (Negative); Benzodiazepines Screen Urine Positive (Negative); Cocaine Screen Urine Negative (Negative); Opiate Screen Urine Negative (Negative); PCP Screen Urine Negative (Negative); THC Screen Urine Positive (Negative)
[2021-05-02 02:38] VITALS: BP 128/84; PULSE 60; RESP 18; O2SAT 96
== END 2021-05-02 02:50 | disposition home or self-care (01) ==
PROVIDERS: Emergency Provider Emergency Medicine; PCP Physician Assistant Medical
DX: F32.A Depression, unspecified (principal); F17.210 Nicotine dependence, cigarettes, uncomplicated; Z85.038 Personal history of other malignant neoplasm of large intestine; Z79.899 Other long term (current) drug therapy; Z86.15 Personal history of latent tuberculosis infection
CPT/HCPCS: 80053; 80306; 80307; 85025; 99283

== ENCOUNTER → 2021-12-29 14:28 | Outpatient (BNVA) | payer MEDICAID, SELFPAY | PROVIDERS: Visit Provider Specialist | DX: G40.109 Localization-related (focal) (partial) symptomatic epilepsy and epileptic syndromes with simple partial seizures, not intractable, without status epilepticus (principal); B02.29 Other postherpetic nervous system involvement; R63.0 Anorexia; Z68.1 Body mass index [BMI] 19.9 or less, adult; Z86.19 Personal history of other infectious and parasitic diseases | CPT/HCPCS: 99213; 99214 ==

== ENCOUNTER → 2022-02-20 12:52 | Outpatient (BNVA) | payer MEDICAID, SELFPAY | PROVIDERS: Visit Provider Specialist | DX: R56.9 Unspecified convulsions (principal); G43.711 Chronic migraine without aura, intractable, with status migrainosus; S34.109A Unspecified injury to unspecified level of lumbar spinal cord, initial encounter; S32.009A Unspecified fracture of unspecified lumbar vertebra, initial encounter for closed fracture; W11.XXXA Fall on and from ladder, initial encounter | CPT/HCPCS: 99215 ==

== ENCOUNTER 2022-03-03 15:00 | Emergency (ER) | payer MEDICAID, SELFPAY ==
[2022-03-03 15:06] VITALS: BP 134/86; PULSE 62; RESP 14; TEMP 36.8; O2SAT 97; BMI 16.3
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
== END 2022-03-03 17:20 | disposition home or self-care (01) ==
PROVIDERS: Emergency Provider Physician Assistant
DX: T15.92XA Foreign body on external eye, part unspecified, left eye, initial encounter (principal); V89.2XXA Person injured in unspecified motor-vehicle accident, traffic, initial encounter
CPT/HCPCS: 70450; 70486; 72125; 99284

== ENCOUNTER → 2022-04-20 09:49 | Outpatient (BNVA) | payer MEDICAID, SELFPAY | PROVIDERS: PCP Registered Nurse; Visit Provider Specialist | DX: G43.711 Chronic migraine without aura, intractable, with status migrainosus (principal); F41.9 Anxiety disorder, unspecified; F32.A Depression, unspecified; S34.109D Unspecified injury to unspecified level of lumbar spinal cord, subsequent encounter; S32.009D Unspecified fracture of unspecified lumbar vertebra, subsequent encounter for fracture with routine healing; V89.2XXD Person injured in unspecified motor-vehicle accident, traffic, subsequent encounter | CPT/HCPCS: 64615; 99213; J0585 ==

== ENCOUNTER → 2022-06-27 10:30 | Outpatient (BNVA) | payer MEDICAID, SELFPAY | PROVIDERS: PCP Registered Nurse; Visit Provider Specialist | DX: G40.109 Localization-related (focal) (partial) symptomatic epilepsy and epileptic syndromes with simple partial seizures, not intractable, without status epilepticus (principal); F41.9 Anxiety disorder, unspecified; F32.A Depression, unspecified; G43.711 Chronic migraine without aura, intractable, with status migrainosus; S32.009D Unspecified fracture of unspecified lumbar vertebra, subsequent encounter for fracture with routine healing; V89.2XXD Person injured in unspecified motor-vehicle accident, traffic, subsequent encounter | CPT/HCPCS: 99214 ==

== ENCOUNTER → 2022-07-13 12:40 | Outpatient (BNVA) | payer MEDICAID, SELFPAY | PROVIDERS: PCP Registered Nurse; Visit Provider Specialist | DX: G43.711 Chronic migraine without aura, intractable, with status migrainosus (principal); G40.109 Localization-related (focal) (partial) symptomatic epilepsy and epileptic syndromes with simple partial seizures, not intractable, without status epilepticus; F43.10 Post-traumatic stress disorder, unspecified; A15.9 Respiratory tuberculosis unspecified | CPT/HCPCS: 64615; 99213 ==

== ENCOUNTER → 2022-10-26 10:53 | Outpatient (BNVA) | payer MEDICAID, SELFPAY | PROVIDERS: PCP Family Medicine; Visit Provider Specialist | DX: G43.711 Chronic migraine without aura, intractable, with status migrainosus (principal); G40.109 Localization-related (focal) (partial) symptomatic epilepsy and epileptic syndromes with simple partial seizures, not intractable, without status epilepticus; F41.9 Anxiety disorder, unspecified; F32.A Depression, unspecified; F43.10 Post-traumatic stress disorder, unspecified; R42 Dizziness and giddiness; R41.89 Other symptoms and signs involving cognitive functions and awareness | CPT/HCPCS: 64615; 99214; J0585 ==

== ENCOUNTER → 2023-01-25 10:40 | Outpatient (BNVA) | payer MEDICAID, SELFPAY | PROVIDERS: PCP Family Medicine; Visit Provider Specialist | DX: G40.109 Localization-related (focal) (partial) symptomatic epilepsy and epileptic syndromes with simple partial seizures, not intractable, without status epilepticus (principal); G43.711 Chronic migraine without aura, intractable, with status migrainosus; F17.210 Nicotine dependence, cigarettes, uncomplicated; Z71.6 Tobacco abuse counseling | CPT/HCPCS: 64615; 99213; J0585 ==

== ENCOUNTER 2023-02-19 09:53 | Inpatient (IN) | payer MEDICAID, SELFPAY ==
[2023-02-19] VITALS (59 sets, daily range): BP systolic 98–133; BP diastolic 59–87; PULSE 36–79; RESP 11–24; TEMP 36.4–36.8; O2SAT 94–100; BMI 18.2
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
[2023-02-19 11:30] LABS: Basophils # 0.1 10^3/uL (0.0-0.1); Basophils % 0.8 %; Eosinophils # 0.1 10^3/uL (0.0-0.8); Eosinophils % 0.8 %; Hematocrit 48.1 % (37-53); Lymphocytes # 1.9 10^3/uL (0.8-4.8); Lymphocytes % 23.7 %; Mean Corpuscular HGB Conc 34.5 g/dL (30-55); Mean Corpuscular Hemoglobin 32.7 pg (27-33); Mean Corpuscular Volume 94.9 fl (82-101); Mean Platelet Volume 9.7 fL (7.4-10.4); Monocytes # 0.5 10^3/uL (0.2-0.9); Monocytes % 6.6 %; Neutrophils # 5.42 10^3/uL (1.8-7.7); Neutrophils % 67.8 %; Nucleated Red Blood Cells % 0 %; Platelet Count 182 10^3/cmm (157-399); Red Blood Count 5.07 10^6/uL (3.85-5.65); Red Cell Distribution Width 13.1 % (12.1-15.1); White Blood Count 7.98 10^3/uL (3.29-11.43)
[2023-02-19 11:47] LABS: Troponin(5th) Baseline < 6 ng/L (0-15)
--- NOTE | 2023-02-19 11:47 | ECG_ITS ---
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 Measurements Intervals [place] Rate: 39 P: 59 NE: 156 QRS: 73 QRSD: 114 T: 53 QT: 495 QTc: 401 Interpretive Statements SINUS BRADYCARDIA POSSIBLE LEFT VENTRICULAR HYPERTROPHY [VOLTAGE CRITERIA PLUS LAE OR QRS WIDENING] Compared to ECG 10/20/2018 15:37:04 Sinus arrhythmia no longer present Myocardial infarct finding no longer present Electronically Signed On 02-19-2023 12:02:15 WORKFORCE STAFFING ADVISOR by Reji Rodriguez M.D. [email or web address]
[2023-02-19 11:54] LABS: Alanine Aminotransferase 9 U/L (0-41); Albumin Level 4.4 g/dL (3.5-5.2); Alkaline Phosphatase 109 U/L (40-130); Anion Gap 15.5 (5-19); Aspartate Amino Transferase 15 U/L (0-40); Blood Urea Nitrogen 8 mg/dL (6-20); Calcium 9.3 mg/dL (8.5-10.5); Carbon Dioxide 25 mmol/L (22-29); Chloride 108 mmol/L (98-107); Glomerular Filtration Rate 91.7 mL/min (90-130); Glucose 97 mg/dL (65-115); Lipase 19 U/L (13-60); NT Pro B Type Natriuretic Pept 169 pg/mL (0-125); Osmolality Calculated 296 mOsm/kg (285-295); Potassium 4.5 mmol/L (3.5-5.1); Sodium 144 mmol/L (136-145); Total Bilirubin 0.3 mg/dL (0.15-1.2); Total Protein 6.4 g/dL (6.6-8.7)
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
--- NOTE | 2023-02-19 12:56 | ECG_ITS ---
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 Measurements Intervals [place] Rate: 38 P: 0 CT: 0 QRS: 76 QRSD: 118 T: 58 QT: 481 QTc: 386 Interpretive Statements SINUS BRADYCARDIA WITH SINUS ARRHYTHMIA MODERATE INTRAVENTRICULAR CONDUCTION DELAY [110+ ms QRS DURATION] Compared to ECG 02/19/2023 11:47:08 Intraventricular conduction delay now present Sinus bradycardia no longer present Electronically Signed On 02-19-2023 12:04:57 TEXTILE [employer]OTH[employer]OTWEAR MECHANIC by Reji Rodriguez M.D. [email or web address] mississippi medical centerNinjathatkettering health hamilton.[employer]/store/OM/[id number]
[2023-02-19 13:18] LABS: Thyroid Stimulating Hormone 1.53 uIU/mL (0.27-4.20)
[2023-02-19 14:32] LABS: Troponin 5 2HR 7.51 ng/L (0-15); Troponin 5 2HR Delta 1.51001 ABS# (0-10)
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
[2023-02-19 16:18] LABS: Magnesium 2.3 mg/dL (1.7-2.3); Phosphorus 3.2 mg/dL (2.5-4.5)
--- NOTE | 2023-02-19 16:23 | USCV_ITS ---
Hugh Hall Age: 42 Gender: M : 1980 Exam Date: 02/19/2023 19:06 Ordering Phys: Dee Talavera MD Technologist: ANNIE Exam Location: [facility] [place] Indication: bradycardia and chest pain, near syncope at physical therapy today. BP: 116 / 78 HR: 50 Rhythm: Sinus bradycardia Technical Quality: Adequate MEASUREMENTS (Male / Female) Normal Values 2D ECHO LV Diastolic Diameter PLAX 4.2 cm 4.2 - 5.9 / 3.9 - 5.3 cm LV Systolic Diameter PLAX 2.5 cm IVS Diastolic Thickness 1.2 cm 0.6 - 1.0 / 0.6 - 0.9 cm IVS Systolic Thickness 1.3 cm LVPW Diastolic Thickness 1.1 cm 0.6 - 1.0 / 0.6 - 0.9 cm LVPW Systolic Thickness 1.9 cm LVOT Diameter 1.4 cm LV Ejection Fraction 2D Teich 71.8 % LV Ejection Fraction MOD 2C 65.4 % LV Ejection Fraction 2C AL 64.6 % LA Diameter 3.1 cm LA Width 4.2 cm LA Height 2.9 cm RA Width 3.7 cm RA Height 3.8 cm Aorta at Sinotubular Diameter 2.8 cm IVC Diameter 1.5 cm M-MODE Aortic Annulus Diameter 2.9 cm LA Ao Ratio MM 1.1 MV E Point Septal Separation 0.4 cm DOPPLER AV Peak Velocity 107.0 cm/s LVOT Peak Velocity 92.0 cm/s AV Area Cont Eq vti 1.3 cm squared AV Area Cont Eq pk 1.3 cm squared MV Area PHT 4.0 cm squared Mitral E to A Ratio 1.2 MV E' Velocity 44.0 cm/s Mitral E to MV E' Ratio 6.3 Mitral E to LV E' Lateral Ratio 6.4 Mitral E to LV E' Septal Ratio 6.2 TR Peak Velocity 210.8 cm/s TR Peak Gradient 17.8 mmHg TV Peak E Velocity 91.0 cm/s Right Atrial Pressure 5.0 mmHg Pulmonary Artery Systolic Pressu 22.8 mmHg PV Peak Velocity 81.0 cm/s RV Acceleration Time 0.2 s RV Ejection Time 0.4 s RV AcT/ET 0.4 FINDINGS Left Ventricle Left ventricle is normal size. LV systolic function is normal with EF 55 to 60%. No regional wall motion abnormalities are seen. Right Ventricle Normal in size and function Right Atrium Normal in size Left Atrium Normal in size Mitral Valve Structurally normal mitral valve. Mild mitral regurgitation. Aortic Valve Aortic valve is thickened. No significant stenosis or regurgitation. Tricuspid Valve Trace tricuspid regurgitation. Insufficient TR jet to calculate RVSP Pulmonic Valve Not well visualized Pericardium Normal Aorta Normal in size IVC Appears to be normal CONCLUSIONS LV systolic function is normal with EF of 55 to 60%. Mild mitral regurgitation Trace tricuspid regurgitation No comparison studies are available. Reji Rodriguez MD (Electronically Signed) Final Date: 20 February 2023 11:18 S
--- NOTE | 2023-02-19 16:56 | ECG_ITS ---
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 Measurements Intervals [place] Rate: 42 P: 69 PA: 156 QRS: 74 QRSD: 109 T: 60 QT: 488 QTc: 411 Interpretive Statements SINUS BRADYCARDIA WITH SINUS ARRHYTHMIA Compared to ECG 02/19/2023 11:59:33 Intraventricular conduction delay no longer present Electronically Signed On 02-19-2023 19:05:32 MERCHANDISING INTERN by Lea Montiel M.D. [email or web address] medical [email or web address] defiance regional hospitalChange Healthcare/store/[id number]
[2023-02-19] MEDS: D5-NS 0.45% + KCL 20 mEq 20 MEQ/1,000 ML BAG 100 MEQ IV (17:16)
[2023-02-19 17:53] LABS: Troponin 5 6HR 6.38 ng/L (0-15); Troponin 5 6HR Delta 0.38001 ng/L (0-12)
--- NOTE | 2023-02-19 18:44 | P.CONIM_ITS ---
Providers/Reason For Consult Consulting Physician/Specialty*: Reji Rodriguez MD/ Cardiology Reason for Consult*: Bradycardia Requesting Physician: Dr Lozada Attending Physician: Dee Talavera MD Primary Care Provider: Kate Ham MD History of Present Illness History of Present Illness Hugh Hall Sr is a 42 year old male with prior history of seizures on Keppra, olanzapine who was sent from physical therapy to the hospital for his bradycardia. According to patient he was told that he is looking pale. He had a presyncopal episode after that. He has known to have bradycardia. EKG demonstrated sinus bradycardia in 30s to 40s. At time of my evaluation his heart rate is in the late 50s to 60s. No AV block was noted. He also says he had some chest discomfort today. It was left-sided with some numbness that was transient in the left arm. He gets this discomfort event in the past. He has passed out however not sure if that was related to the seizures that he had seizing activity with it. Review of Systems General: Reports: Other (ROS as per HPI or as otherwise noted here) Const: Reports: change in weight (no recent change in weight) and fatigue; Denies: fever(s) Eyes: Denies: change in vision ENMT: Denies: throat pain Card: Reports: irregular heart rhythm, pre-syncope and dyspnea on exertion Resp: Denies: pain on inspiration, hemoptysis or chest congestion GI: Reports: nausea and heartburn; Denies: abdominal pain or change in bowel habits : Denies: difficulty urinating Musc: Reports: back pain (not worsening or new) Skin/Breast: Reports: sores (scratches to arms from fence, up to date on Td) Neuro: Reports: headache(s) and dizziness Psych: Reports: anxiety and depression (doing okay) Ronn/Lymph: Denies: easy bruising or easy bleeding Medications/Allergies Home Medications Medication Instructions Recorded Confirmed Last Taken Type midazolam 5 mg/spray (0.1 mL) 1 spray intranasal ONCE #1 ea 03/02/21 02/19/23 Unknown Rx nasal spray levetiracetam 1,000 mg tablet See Rx Instructions .Route 01/25/23 02/19/23 02/19/23 Rx .COMPLEX #90 tabs albuterol sulfate 90 mcg/actuation 2 inh inhalation Q6H PRN Shortness 02/19/23 02/19/23 Unknown History aerosol inhaler (Ventolin HFA) Of Breath clobazam 20 mg tablet (Onfi) See Rx Instructions .Route .COMPLEX 02/19/23 02/19/23 02/19/23 History dicyclomine 10 mg capsule 10 mg PO BID PRN Diarrhea 02/19/23 02/19/23 Unknown History gabapentin 300 mg capsule See Rx Instructions .Route .COMPLEX 02/19/23 02/19/23 02/19/23 History methocarbamol 750 mg tablet 750 mg PO TID 02/19/23 02/19/23 02/19/23 History olanzapine 5 mg tablet 5 mg PO BEDTIME 02/19/23 02/19/23 02/18/23 History omeprazole 20 mg capsule,delayed 20 mg PO DAILY 02/19/23 02/19/23 02/19/23 History release Allergies Allergy/AdvReac Type Severity Reaction Status Date / Time doxycycline Allergy Unknown Unknown Verified 01/25/23 11:06 Penicillins Allergy ALGY-Hives Verified 01/25/23 11:06 Current Medications Generic Name Dose Route Start Last Admin Trade Name Freq PRN Reason Stop Dose Admin Potassium Chloride/Dextrose/Sod Cl 20 meq in 1,000 mls @ 100 mls/hr 02/19/23 16:23 02/19/23 17:16 D5-Ns 0.45% + Kcl 20 Meq IV 100 mls/hr .Q10H NORA Administration PFSH Acute PFSH: Medical History Anxiety and depression Chronic migraine without aura, intractable, with status migrainosus botox treatment History of wound infection required wound care to sores on both knees Lumbar fracture with cord injury Postherpetic neuralgia PTSD (post-traumatic stress disorder) Pulmonary fungal infection (2021) treated with prolonged course of medication, specific fungi unknown by patient, treated at [facility] Temporal lobe epilepsy Tuberculosis (2020) treated with 6 months antibiotics Surgical History No history of previous surgery this diagnosis entered into chart 02/19/23 Family History Family/Other Arrhythmia multiple family members with pacemakers (7) Sister CAD (coronary artery disease) cardiac stents Family/Other Family history of premature coronary artery disease uncle near age 50 from heart attack Other Cancer Stroke Social History Smoking and tobacco/nicotine status: current every day tobacco/nicotine user cigarettes Packs smoked per day: 1 Alcohol intake: never Substance/Drug Use: current Substance/Drug use frequency: few times a month Substance/Drug use type: Marijuana service: Yes Current occupational status: disabled Vitals/I&O/Wt Last Vital Signs Temp 97.5 F L 02/19/23 09:56 Pulse 47 L 02/19/23 17:45 Resp 24 H 02/19/23 17:45 BP 106/72 02/19/23 17:50 Pulse Ox 97 02/19/23 18:00 O2 Del Method Room Air 02/19/23 17:31 02/19/23 02/19/23 02/19/23 06:59 14:59 22:59 Intake Total 240 / 240 Balance 240 / 240 Weight last 48 hrs Weight 127 lb Physical Exam Narrative: GENERAL: Patient is alert, awake and oriented x3. [] NECK: No jugular vein distension. [] HEENT: No cyanosis. No icterus. No pallor. [] HEART: Regular S1 and S2. No murmur, rub or gallop. [] LUNGS: Clear to auscultate bilaterally. [] CENTRAL NERVOUS SYSTEM: Grossly nonfocal. [] EXTREMITIES: Lower extremities with 1+ edema bilaterally. Data 02/19/23 11:22 02/19/23 11:22 A&P Assessment and plan (1) Chest pain: (2) Sinus bradycardia: (3) PTSD (post-traumatic stress disorder): (4) Temporal lobe epilepsy: Plan Patient has presented with significant sinus bradycardia. Also had chest discomfort. Although previously also gets on and off chest discomfort. Mentions significant family history of CAD and multiple members needing pacemakers. He is currently getting echocardiogram For better assessment of chronotropic competence and ruling out ischemia, we will recommend exercise MIBI. Avoid rate controlling agents. Continue telemetry monitoring Thank you for involving us with care of this patient. We will continue to follow. Please call with questions. Consult Attestations Medical Necessity Statement: Care expected to cross 2 midnights. Coding Level of Care Code Acute Code for Chg Fwd Diagnoses Chest pain R07.9 Sinus bradycardia R00.1 PTSD (post-traumatic stress disorder) F43.10 Temporal lobe epilepsy G40.109
[2023-02-19] MEDS: enoxaparin 40 mg/0.4 mL Syringe SUBCUT (19:05)
[2023-02-19] MEDS: levETIRAcetam 500 mg Tablet 1500 MG PO (19:06)
[2023-02-19] MEDS: ondansetron 4 MG Tablet PO (19:06)
[2023-02-19] MEDS: gabapentin 300 mg Capsule 600 MG PO (22:01)
[2023-02-19] MEDS: OLANZapine 5 mg TABLET PO (22:01)
[2023-02-20] VITALS (14 sets, daily range): BP systolic 89–126; BP diastolic 55–69; PULSE 37–76; RESP 14–24; TEMP 36.7; O2SAT 91–98
[2023-02-20] MEDS: D5-NS 0.45% + KCL 20 mEq 20 MEQ/1,000 ML BAG 100 MEQ IV ×2 (02:28→21:10)
[2023-02-20 04:14] LABS: Erythrocyte Sedimentation Rate < 1 mm/hr (0-10)
[2023-02-20 04:39] LABS: C Reactive Protein 4.3 mg/L (0.0-4.9); Chol HDL Ratio 5.57 mg/dL (1.0-5.00); Cholesterol 128 mg/dL (0-200); HDL Cholesterol 23 mg/dL (60-100); LDL Cholesterol Calculated 81 mg/dL (50-129); LDL HDL Ratio 3.52 RATIO (0.00-3.22); Triglycerides 120 mg/dL (0-150)
[2023-02-20] MEDS: regadenoson 0.4 Mg/5 ml Syringe IVP (07:20)
--- NOTE | 2023-02-20 08:00 | ECG_ITS ---
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 Interpretive Statements NAME OF STUDY: LEXISCAN SESTAMIBI STRESS TEST INDICATION: BRADYCARDIA/CHEST PAIN, PROCEDURE: At the baseline, the EKG revealed sinus bradycardia with poor R wave progression. The baseline heart was 49 bpm with a blood pressue of 98/72 mm of Hg Lexiscan was infused over a period of 20 seconds. A total of 0.4 milligrams of Lexiscan was infused. The stress phase was continued for a total of 5 minutes. Heart rate at the end of the stress phase was 73 bpm with a blood pressure 114/65 mm of Hg. The EKG at the peak infusion revealed normal sinus rhythm with no significant ST-T changes Sestamibi was injected 20 seconds after the Lexiscan infusion. Heart rate at the end of the recovery phase was 65 bpm with a blood pressure of 123/81 mm of Hg. CONCLUSION: 1. No significant EKG changes with the LexiScan infusion 2. No LexiScan induced chest pain or cardiac arrhythmia 3. Normal blood pressure and heart rate response 4. Sestamibi/sestamibi perfusion scan pending; see separate report. Electronically Signed On 02-20-2023 13:59:21 [employer] STOR[employer] WORK[employer] by Bobbi Briseno M.D. [email or web address]
[2023-02-20] MEDS: pantoprazole DR 40 mg Tablet PO (09:11)
[2023-02-20] MEDS: levETIRAcetam 500 mg Tablet 1500 MG PO ×2 (09:11→17:42)
[2023-02-20] MEDS: gabapentin 300 mg Capsule PO ×2 (09:12→15:15)
[2023-02-20] MEDS: ondansetron 4 MG Tablet PO ×2 (09:12→17:42)
--- NOTE | 2023-02-20 10:23 | PM.PN ---
Subjective Subjective: seen this am HR 30-50's overnight pt returned from stress test results pending denies cp, sob, lightheadedness at this time, Vitals/I&O/Wt Last Vital Signs Temp 98.1 F 02/20/23 04:36 Pulse 76 02/20/23 07:35 Resp 24 H 02/20/23 06:03 BP 113/69 02/20/23 07:35 Pulse Ox 96 02/20/23 06:03 O2 Del Method Room Air 02/20/23 04:36 02/19/23 02/20/23 02/20/23 22:59 06:59 14:59 Intake Total 240 / 240 920 / 1160 Output Total 250 / 250 1125 / 1375 Balance -10 / -10 -205 / -215 Weight last 48 hrs Weight 59.874 kg Weight 57.606 kg Physical Exam Narrative: GENERAL: Patient is alert, awake and oriented x3. [] HEENT: No cyanosis. No icterus. No pallor. [] HEART: Bradycardic, Regular S1 and S2. No murmur, rub or gallop. [] LUNGS: Clear to auscultate bilaterally. [] CENTRAL NERVOUS SYSTEM: Grossly nonfocal. [] EXTREMITIES: Lower extremities with 1+ edema bilaterally. Data 02/19/23 11:22 02/19/23 11:22 A&P Assessment and plan (1) Temporal lobe epilepsy: (2) Anxiety and depression: (3) Chronic migraine without aura, intractable, with status migrainosus: (4) PTSD (post-traumatic stress disorder): (5) Smoking greater than 40 pack years: (6) Chest pain: (7) Sinus bradycardia: Plan #Sinus Bradycardia #Chest Pain #Temporal Lobe Epilepsy #Anxiety and depression #Chronic migraine #Active smoker - Continue to monitor in icu - Stress test today. Results pending - Echo pending - Continue to monitor on telemetry - Cardiology on board. Await further recs - Replete electrolytes as needed. - Patient does get symptomatic with episodes of bradycardia - Continue keppra and onfi, prn nasal midazolam spray - continue olanzapine - Follows with Dr. Villalobos. Last seen 01/25/2023 - Holding dicyclomine and metacarbamol currenly - Continue nicotine gum/patch Lovenox DVT PPS SCDS Attestations Medical Necessity Statement*: > 2 midnight stay. Pt is still bradycardic and undergoing diagnostic workup at this time. Diagnoses Temporal lobe epilepsy G40.109 Anxiety and depression F41.9; F32.A Chronic migraine without aura, intractable, with status migrainosus G43.711 PTSD (post-traumatic stress disorder) F43.10 Smoking greater than 40 pack years F17.210 Chest pain R07.9 Sinus bradycardia R00.1
--- NOTE | 2023-02-20 10:57 | PM.PN ---
Subjective Subjective: Patient is doing well. Had lexiscan that not showing ischemia. For chronotropic competence, we preformed exercise stress ekg. He exercised for over 6 minutes with maximum heart rate of 82 bpm which is 46% of maxium predicted heart rate. Vitals/I&O/Wt Last Vital Signs Temp 98.1 F 02/20/23 04:36 Pulse 76 02/20/23 07:35 Resp 24 H 02/20/23 06:03 BP 113/69 02/20/23 07:35 Pulse Ox 96 02/20/23 06:03 O2 Del Method Room Air 02/20/23 04:36 02/19/23 02/20/23 02/20/23 22:59 06:59 14:59 Intake Total 240 / 240 920 / 1160 Output Total 250 / 250 1125 / 1375 Balance -10 / -10 -205 / -215 Weight last 48 hrs Weight 132 lb Weight 127 lb Data 02/21/23 04:05 02/21/23 04:05 A&P Assessment and plan (1) Chest pain: (2) Sinus bradycardia: (3) PTSD (post-traumatic stress disorder): (4) Temporal lobe epilepsy: Plan Patient's Lexiscan did not reveal ischemia. We also performed exercise stress EKG test to make is we need to check for chronotropic competence. His exercise responses is a significantly suboptimal. He also became symptomatic with it and felt lightheaded. Avoid rate controlling agent. We will discharge patient on event monitor. I had a detailed discussion with patient regarding all options. Shared decision made to observe with event monitor and decide on permanent pacemaker placement as outpatient after observing correlation with symptoms, he does not have any AV block and has sinus bradycardia. Thank you for involving us with care of this patient. We will continue to follow. Please call with questions. Attestations Medical Necessity Statement*: Care expected to cross 2 midnights. Coding Level of Care Code Acute Code for Chg Fwd Diagnoses Chest pain R07.9 Sinus bradycardia R00.1 PTSD (post-traumatic stress disorder) F43.10 Temporal lobe epilepsy G40.109
--- NOTE | 2023-02-20 12:47 | ECG_ITS ---
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 Interpretive Statements NAME OF STUDY: TREADMILL STRESS TEST INDICATION: [Chronotropic incompetence] EXERCISE DATA: The patient was exercised by Kaleb protocol. Baseline heart rate was 39 beats per minute. Baseline blood pressure was 112/71 millimeters of mercury. Target heart rate was 150 beats per minute. Maximum heart rate achieved was 82 which was 55% of the target heart rate. Maximum blood pressure was 130/77 millimeters of mercury. Total exercise time was 6 minutes and 43 seconds. Maximum METs achieved was 10. The reason for ending the test was shortness of breath. The patient complained of shortness of breath during the stress test, which then resolved at the end of the test. ELECTROCARDIOGRAM: BASELINE: Showed sinus braducardia, normal axis, no significant ST-T changes at the baseline noted. [] EXERCISE: At the peak exercise level, [] No significant ST-T changes suggestive of ischemia noted. [] RECOVERY: During the recovery period, heart rate dropped appropriately. No significant ST-T changes in the recovery suggestive of ischemia noted. [] CONCLUSION: 1. Exercise capacity is good. 2. Heart rate response was significantly suboptimal. Patient has chronotropic incompetence 3. Blood pressure response was appropriate 4. Symptoms not suggestive of ischemia. 5. Exercise stress test is indeterminate to assess for ischemia. However the purpose of performing this test was mainly to assess chronotropic competence. Patient's heart rate did not increase appropriately. Electronically Signed On 02-22-2023 11:20:06 CHIEF AIRPORT GUIDE by Reji Rodriguez M.D. [email or web address]
[2023-02-20] MEDS: enoxaparin 40 mg/0.4 mL Syringe SUBCUT (17:42)
--- NOTE | 2023-02-20 19:30 | NMCV_ITS ---
NM collins perf SPECT r/s* [id number] Hugh Hall Age: 42 Gender: M : 1980 Exam Date: 02/20/2023 06:47 Ordering Phys: Jay Mar MD Technologist: ALEX Cheung Exam Location: [facility] Indications: CHEST PAIN STRESS TEST [facility] IMAGE PROTOCOL Rest/Stress 1 Lexiscan Day Radiopharmaceutical Dose (mCi) Administration Site Administered by Rest: Tc-99m 10.9 IV ALEX Cook Sestamibi Stress:Tc-99m 32.4 IV ALEX Cook Sestamibi Rest: 20-Feb-2023 60 Discovery 630 Stress: 20-Feb-2023 30 Discovery 630 0.4mg Lexiscan. Images obtained in supine and prone position. SPECT RESULTS Technical Quality: Excellent Raw Data Analysis: Normal Image Corrections: No attenuation or motion correction applied Summed Stress Score: 0 Summed Rest Score: 0 Summed Difference Score: 0 PERFUSION FINDINGS Fairly uniform myocardial tracer uptake with no significant perfusion abnormalities FUNCTIONAL RESULTS (calculated via Gated SPECT) Stress Image LV EF (%): 57 Stress EDV (mL):127 TID: 1 Stress ESV (mL):55 FUNCTIONAL FINDINGS: Segmental wall motion analysis revealing no gross wall motion abnormalities IMPRESSIONS 1. Normal Myocardial perfusion imaging 2. Normal LV ejection fraction of 57%. 3. LV wall motion analysis revealing no gross wall motion abnormalities. 4. Normal LV volume Low probability for coronary ischemia, based on the above findings Dr Bobbi Briseno MD [facility] (Electronically Signed) Final Date: 20 February 2023 12:45 S
[2023-02-20] MEDS: gabapentin 300 mg Capsule 600 MG PO (20:59)
[2023-02-20] MEDS: OLANZapine 5 mg TABLET PO (20:59)
[2023-02-21] VITALS (8 sets, daily range): BP systolic 98–113; BP diastolic 60–78; PULSE 36–45; RESP 9–21; TEMP 36.4–36.7; O2SAT 92–97
[2023-02-21 04:45] LABS: Basophils # 0.1 10^3/uL (0.0-0.1); Basophils % 0.7 %; Eosinophils # 0.1 10^3/uL (0.0-0.8); Eosinophils % 1.6 %; Hematocrit 47.8 % (37-53); Lymphocytes # 2.4 10^3/uL (0.8-4.8); Lymphocytes % 35.9 %; Mean Corpuscular HGB Conc 33.9 g/dL (30-55); Mean Corpuscular Hemoglobin 32.3 pg (27-33); Mean Corpuscular Volume 95.2 fl (82-101); Mean Platelet Volume 10.3 fL (7.4-10.4); Monocytes # 0.6 10^3/uL (0.2-0.9); Monocytes % 8.8 %; Neutrophils # 3.59 10^3/uL (1.8-7.7); Neutrophils % 52.9 %; Nucleated Red Blood Cells % 0 %; Platelet Count 147 10^3/cmm (157-399); Red Blood Count 5.02 10^6/uL (3.85-5.65); Red Cell Distribution Width 12.9 % (12.1-15.1)
[2023-02-21] MEDS: gabapentin 300 mg Capsule PO (05:05)
[2023-02-21 05:16] LABS: Anion Gap 11.4 (5-19); Blood Urea Nitrogen 10 mg/dL (6-20); Calcium 8.7 mg/dL (8.5-10.5); Carbon Dioxide 24 mmol/L (22-29); Chloride 109 mmol/L (98-107); Glucose 121 mg/dL (65-115); Magnesium 2.1 mg/dL (1.7-2.3); Osmolality Calculated 290 mOsm/kg (285-295); Potassium 4.4 mmol/L (3.5-5.1); Sodium 140 mmol/L (136-145)
--- NOTE | 2023-02-21 08:08 | P.PN_ITS ---
Subjective Subjective: Patient is doing well. Heart rate is low. Vitals/I&O/Wt Last Vital Signs Temp 98.1 F 02/21/23 00:00 Pulse 43 L 02/21/23 06:35 Resp 21 H 02/21/23 06:35 BP 98/62 02/21/23 06:35 Pulse Ox 92 02/21/23 06:35 O2 Del Method Room Air 02/20/23 04:36 02/20/23 02/21/23 02/21/23 22:59 06:59 14:59 Intake Total 540 / 1540 360 / 1900 Output Total 2200 / 2200 Balance 540 / 1540 -1840 / -300 Weight last 48 hrs Weight 132 lb Weight 132 lb Weight 127 lb Physical Exam Narrative: GENERAL: Patient is alert, awake and oriented x3. [] NECK: No jugular vein distension. [] HEENT: No cyanosis. No icterus. No pallor. [] HEART: Bradycardia, Regular S1 and S2. LUNGS: Clear to auscultate bilaterally. [] CENTRAL NERVOUS SYSTEM: Grossly nonfocal. [] EXTREMITIES: Lower extremities with 1+ edema bilaterally. Data 02/21/23 04:05 02/21/23 04:05 A&P Assessment and plan (1) Chest pain: (2) Sinus bradycardia: (3) PTSD (post-traumatic stress disorder): (4) Temporal lobe epilepsy: Plan We will recommend event monitor and outpatient discussion regarding pacemaker placement. He has sinus bradycardia. Exercise stress test showed chronotropic incompetence Avoid rate limiting medications Outpatient cardiology follow up in 4 weeks Attestations Medical Necessity Statement*: Care expected to cross 2 midnights. Coding Level of Care Code Acute Code for [facility] Fwd Diagnoses Chest pain R07.9 Sinus bradycardia R00.1 PTSD (post-traumatic stress disorder) F43.10 Temporal lobe epilepsy G40.109
--- NOTE | 2023-02-21 08:53 | PM.DCS ---
Discharge Providers Date of Admission: 02/19/23 14:07 Date of Discharge: February 21, 2023 Attending Provider at Admission: Dee Talavera MD Attending Provider at Discharge: Erika Maher MD Primary Care Provider: Kate Ham MD Diagnoses at Discharge Discharge Diagnosis (1) Chest pain: Status: Acute (2) Sinus bradycardia: Status: Acute (3) PTSD (post-traumatic stress disorder): Status: Acute (4) Temporal lobe epilepsy: Status: Acute Reason for Visit Reason for Visit: CP, numbness on left side Hospital Course Hospital Course Patient admitted for syncopal episode at physical therapy. He was found to have bradycardia with rate in the 30s. Patient states that he has had bradycardia for a long time and in the past has had been recommended a pacemaker. His sister has also had a pacemaker at a younger age. He has not had any genetic testing done. Cardiology was consulted during hospital stay. Stress test was ordered. Lexiscan did not show ischemia. For chronotropic competence exercise stress EKG was performed. He exercised for over 6 minutes with maximum heart rate of 82 which is 46% of maximum predicted heart rate. He also became symptomatic and felt lightheaded. Rate controlling agent to be avoided as per cardiology. Patient had a detailed discussion with cardiology regarding all the options. Decision made to observe patient with event monitor for 30 days and then follow-up with cardiology. At that point they will decide on permanent pacemaker placement as outpatient after observing correlation with symptoms. There was no AV block on EKG. Patient has sinus bradycardia. Patient will be discharged home with a event monitor in stable condition. Patient to go to [facility] after discharge to obtain his event monitor for which he is agreeable to. Physical Exam Narrative: GENERAL: Patient is alert, awake and oriented x3. [] HEENT: No cyanosis. No icterus. No pallor. [] HEART: Bradycardic, Regular S1 and S2. No murmur, rub or gallop. [] LUNGS: Clear to auscultate bilaterally. [] CENTRAL NERVOUS SYSTEM: Grossly nonfocal. [] EXTREMITIES: Lower extremities with 1+ edema bilaterally. Discharge Data Studies Completed and Pending Completed Studies During Hospitalization Category Date Time Status Cardiac Stress Test MIBI [Sestamibi Stress Test Request Exams 02/20/23 08:00 Completed ] Routine XR chest 1V portable [id number] Stat Exams 02/19/23 10:56 Completed NM collins perf SPECT r/s* [id number] Routine Nuc Med 02/20/23 19:30 Completed CV. echo complete* [id number] Routine Ultrasound 02/19/23 16:23 Completed Pending at discharge Category Date Time Status Cardiac Stress Test Request Routine Exams 02/20/23 12:47 Ordered Radiology Impressions Chest X-Ray 02/19/23 10:56 IMPRESSION: No acute findings. Laboratory Results WBC 6.80 10^3/uL (3.29-11.43) 02/21/23 04:05 RBC 5.02 10^6/uL (3.85-5.65) 02/21/23 04:05 Hgb 16.20 g/dL (11.27-16.99) 02/21/23 04:05 Hct 47.8 % (37-53) 02/21/23 04:05 MCV 95.2 fl (82-101) 02/21/23 04:05 MCH 32.3 pg (27-33) 02/21/23 04:05 MCHC 33.9 g/dL (30-55) 02/21/23 04:05 RDW 12.9 % (12.1-15.1) 02/21/23 04:05 Plt Count 147 10^3/cmm (157-399) L 02/21/23 04:05 MPV 10.3 fL (7.4-10.4) 02/21/23 04:05 Neut % (Auto) 52.9 % 02/21/23 04:05 Lymph % (Auto) 35.9 % 02/21/23 04:05 [place] % (Auto) 8.8 % 02/21/23 04:05 Eos % (Auto) 1.6 % 02/21/23 04:05 Baso % (Auto) 0.7 % 02/21/23 04:05 Neut # (Auto) 3.59 10^3/uL (1.8-7.7) 02/21/23 04:05 Lymph # (Auto) 2.4 10^3/uL (0.8-4.8) 02/21/23 04:05 [place] # (Auto) 0.6 10^3/uL (0.2-0.9) 02/21/23 04:05 Eos # (Auto) 0.1 10^3/uL (0.0-0.8) 02/21/23 04:05 Baso # (Auto) 0.1 10^3/uL (0.0-0.1) 02/21/23 04:05 Nucleated RBC % (auto) 0 % 02/21/23 04:05 Nucleated RBCs # 0.0 /100WBC 02/21/23 04:05 ESR < 1 mm/hr (0-10) 02/20/23 03:33 Sodium 140 mmol/L (136-145) 02/21/23 04:05 Potassium 4.4 mmol/L (3.5-5.1) 02/21/23 04:05 Chloride 109 mmol/L (98-107) H 02/21/23 04:05 Carbon Dioxide 24 mmol/L (22-29) 02/21/23 04:05 Anion Gap 11.4 (5-19) 02/21/23 04:05 BUN 10 mg/dL (6-20) 02/21/23 04:05 Creatinine 0.8 mg/dL (0.7-1.2) 02/21/23 04:05 GFR Calculation 105.0 mL/min (90-130) 02/21/23 04:05 Glucose 121 mg/dL (65-115) H 02/21/23 04:05 Calculated Osmolality 290 mOsm/kg (285-295) 02/21/23 04:05 Calcium 8.7 mg/dL (8.5-10.5) 02/21/23 04:05 Phosphorus 3.2 mg/dL (2.5-4.5) 02/19/23 11:22 Magnesium 2.1 mg/dL (1.7-2.3) 02/21/23 04:05 Total Bilirubin 0.3 mg/dL (0.15-1.2) 02/19/23 11:22 AST 15 U/L (0-40) 02/19/23 11:22 ALT 9 U/L (0-41) 02/19/23 11:22 Alkaline Phosphatase 109 U/L (40-130) 02/19/23 11:22 Troponin T Baseline < 6 ng/L (0-15) 02/19/23 11:22 Troponin T 120 Minute 7.51 ng/L (0-15) 02/19/23 13:34 Delta Troponin T 1.70103 ABS# (0-10) 02/19/23 13:34 Troponin T Hi Sens 6Hr 6.38 ng/L (0-15) 02/19/23 17:14 Troponin T Hi Sens 6Hr Delta 0.72243 ng/L (0-12) 02/19/23 17:14 C-Reactive Protein 4.3 mg/L (0.0-4.9) 02/20/23 03:33 NT-Pro-B Natriuret Pep 169 pg/mL (0-125) H 02/19/23 11:22 Total Protein 6.4 g/dL (6.6-8.7) L 02/19/23 11:22 Albumin 4.4 g/dL (3.5-5.2) 02/19/23 11:22 Globulin 2.0 g/dL (1.3-4.6) 02/19/23 11:22 Triglycerides 120 mg/dL (0-150) 02/20/23 03:33 Cholesterol 128 mg/dL (0-200) 02/20/23 03:33 LDL Cholesterol, Calc 81 mg/dL (50-129) 02/20/23 03:33 HDL Cholesterol 23 mg/dL (60-100) L 02/20/23 03:33 LDL/HDL Ratio 3.52 RATIO (0.00-3.22) H 02/20/23 03:33 Cholesterol/HDL Ratio 5.57 mg/dL (1.0-5.00) H 02/20/23 03:33 Lipase 19 U/L (13-60) 02/19/23 11:22 TSH 1.53 uIU/mL (0.27-4.20) 02/19/23 11:22 Vitals Last Vital Signs Temp 97.5 F L 02/21/23 08:21 Pulse 43 L 02/21/23 06:35 Resp 21 H 02/21/23 06:35 BP 98/62 02/21/23 06:35 Pulse Ox 92 02/21/23 06:35 O2 Del Method Room Air 02/20/23 04:36 Discharge Plan Discharge Patient Disposition: Home Condition: Stable Prescriptions: Continued levetiracetam 1,000 mg tablet See Rx Instructions .ROUTE .COMPLEX Qty: 90 2RF Dose Instruction: TAKE 1 & 1/2 (ONE & ONE-HALF) TABLETS BY MOUTH TWICE DAILY Rx Instructions: TAKE 1 & 1/2 (ONE & ONE-HALF) TABLETS BY MOUTH TWICE DAILY midazolam 5 mg/spray (0.1 mL) spray,non-aerosol 1 spray intranasal ONCE Qty: 1 3RF Rx Instructions: 1 spray intranasal at onset of seizure. methocarbamol 750 mg tablet 750 mg PO TID gabapentin 300 mg capsule See Rx Instructions .ROUTE .COMPLEX Rx Instructions: TAKE 1 CAPSULE BY MOUTH IN THE MORNING, 1 CAPSULE IN THE AFTERNOON AND 2 CAPSULES AT BEDTIME omeprazole 20 mg capsule,delayed release(DR/EC) 20 mg PO DAILY Ventolin HFA 90 mcg/actuation HFA aerosol inhaler 2 inh INHALATION Q6H PRN (Reason: Shortness Of Breath) dicyclomine 10 mg capsule 10 mg PO BID PRN (Reason: Diarrhea) olanzapine 5 mg tablet 5 mg PO BEDTIME Onfi 20 mg tablet See Rx Instructions .ROUTE .COMPLEX Rx Instructions: Take 1 tab in the morning and 2 tabs at night Discharge Orders: Discharge Order (Routine); Ordered 02/21/23 Ordered By: Erika Maher Other Ambulatory Orders: MCT/Event Monitor 30 Days (Routine) Timeframe: 1 Day Facility: [facility] - Location: Radiology Ordered By: Erika Maher Referrals: Kate Ham MD [Primary Care Provider] - 02/26/23 11:00 am ([facility] FOR FOLLOW UP ) Reji Rodriguez M.D [Physician] - 1 month (appointment to be scheduled after this visit with Ekta Ramirez APN NURSE) Ekta Ramirez FNP [Nurse Practitioner] - 02/27/23 11:00 am Discharge Diet: Regular Discharge Activity: Resume usual activity Patient Instructions: Bradycardia (DC), Chest Pain Stoplight, Opioid Safety Discharge Attestations Time Spent in Discharge Care*: greater than 30 min Quality Metrics Clinical Quality Measures [ No reported AMI, CVA or VTE this stay] Coding Level of Care Code Acute Code for Chg Fwd Diagnoses Chest pain R07.9 Sinus bradycardia R00.1 PTSD (post-traumatic stress disorder) F43.10 Temporal lobe epilepsy G40.109
[2023-02-21] MEDS: levETIRAcetam 500 mg Tablet 1500 MG PO (10:18)
[2023-02-21] MEDS: ondansetron 4 MG Tablet PO (10:18)
[2023-02-21] MEDS: pantoprazole DR 40 mg Tablet PO (10:18)
--- NOTE | 2023-02-21 12:34 | PC.NURSE ---
Discharge instructions given to patient, no new prescriptions, IV removed. Patient ambulated to private vehicle accompanied by this nurse.
== END 2023-02-21 12:30 | disposition home or self-care (01) | DRG 309 ==
LOC: ER 12:26 → ICU 14:16
PROVIDERS: Emergency Medicine; Admitting Provider Hospitalist; Emergency Provider Family Medicine; PCP Family Medicine; Visit Provider Internal Medicine
DX: R00.1 Bradycardia, unspecified (principal); G40.109 Localization-related (focal) (partial) symptomatic epilepsy and epileptic syndromes with simple partial seizures, not intractable, without status epilepticus; F17.210 Nicotine dependence, cigarettes, uncomplicated; F32.A Depression, unspecified; F41.9 Anxiety disorder, unspecified; F43.10 Post-traumatic stress disorder, unspecified; F12.90 Cannabis use, unspecified, uncomplicated; Z82.49 Family history of ischemic heart disease and other diseases of the circulatory system; Z86.19 Personal history of other infectious and parasitic diseases; G43.711 Chronic migraine without aura, intractable, with status migrainosus
CPT/HCPCS: 36415; 71045; 78452; 80048; 80053; 80061; 83690; 83735; 83880; 84100; 84443; 84484; 85025; 85651; 86140; 93005; 93017; 93306; 96372; 96375; 99285; A9500; J1650; J2785; Q0162

== ENCOUNTER → 2023-02-21 13:34 | Outpatient (BNVA) | payer MEDICAID, SELFPAY | PROVIDERS: PCP Family Medicine; Visit Provider Internal Medicine Cardiovascular Disease | DX: R00.1 Bradycardia, unspecified (principal) | CPT/HCPCS: 93270 ==

== ENCOUNTER → 2023-02-27 10:45 | Outpatient (BNVA) | payer MEDICAID, SELFPAY | PROVIDERS: PCP Family Medicine; Visit Provider Nurse Practitioner Family | DX: R00.1 Bradycardia, unspecified (principal); G43.711 Chronic migraine without aura, intractable, with status migrainosus; F41.9 Anxiety disorder, unspecified; F32.A Depression, unspecified; F17.210 Nicotine dependence, cigarettes, uncomplicated | CPT/HCPCS: 99213 ==

== ENCOUNTER → 2023-03-01 11:33 | Outpatient (BNVA) | payer MEDICAID, SELFPAY | PROVIDERS: PCP Family Medicine; Visit Provider Internal Medicine Cardiovascular Disease | DX: R00.1 Bradycardia, unspecified (principal); F43.10 Post-traumatic stress disorder, unspecified; G43.711 Chronic migraine without aura, intractable, with status migrainosus; F41.9 Anxiety disorder, unspecified; F32.A Depression, unspecified; F17.210 Nicotine dependence, cigarettes, uncomplicated | CPT/HCPCS: 99215 ==

== ENCOUNTER → 2023-05-03 12:08 | Outpatient (BNVA) | payer MEDICAID, SELFPAY | PROVIDERS: PCP Family Medicine; Visit Provider Specialist | DX: G43.711 Chronic migraine without aura, intractable, with status migrainosus (principal); R64 Cachexia; Z68.1 Body mass index [BMI] 19.9 or less, adult; R56.9 Unspecified convulsions; F43.12 Post-traumatic stress disorder, chronic | CPT/HCPCS: 64615; 99215; J0585 ==

== ENCOUNTER → 2023-06-11 11:11 | Outpatient (BNVA) | payer MEDICAID, SELFPAY | PROVIDERS: PCP Family Medicine; Visit Provider Internal Medicine Cardiovascular Disease | DX: R07.89 Other chest pain (principal); F17.210 Nicotine dependence, cigarettes, uncomplicated; Z79.01 Long term (current) use of anticoagulants; I48.91 Unspecified atrial fibrillation; G43.711 Chronic migraine without aura, intractable, with status migrainosus; R00.1 Bradycardia, unspecified; I49.5 Sick sinus syndrome; R06.02 Shortness of breath | CPT/HCPCS: 99214 ==

== ENCOUNTER 2023-06-20 06:51 | Outpatient (CLI) | payer MEDICAID, SELFPAY ==
[2023-06-20] VITALS (10 sets, daily range): BP systolic 97–124; BP diastolic 64–80; PULSE 45–62; RESP 13–18; TEMP 36.4–37; O2SAT 94–98; BMI 17.2
[2023-06-20] MEDS: diphenhydrAMINE 50 mg Capsule PO (07:10)
[2023-06-20] MEDS: aspirin 325 mg Tablet PO (07:10)
--- NOTE | 2023-06-20 07:30 | XACV_ITS ---
Exam Room: 2 Ht: 178 cm Wt: 54 kg BSA: 1.62 m2 Gender: Male : 1980 Any Known Allergies: Other Exam Priority: Routine Procedure(s): Procedure Description: Diagnostic procedure Procedure Description: Left Heart Catheterization Procedure Description: Left ventriculography Procedure Description: Miscellaneous Procedure Description: ACT Procedure Description: Coronary Angiography Finn SILVA; Diagnostic Cath Status: Elective Diagnostic Findings * The left main is a medium caliber short vessel with no significant stenotic lesions. * The left anterior descending artery is a small to medium caliber vessel which appears to taper off towards the LV apex. * The left circumflex artery is a medium to large caliber dominant vessel which was found to have minimal intimal irregularities in the midsegment. No significant stenotic lesions were noted. Conclusions 1. This 42-year-old white male with a history of heavy smoking abuse, presenting with complaints of increasing chest pain ,palpitations and shortness of breath. He had a features of sinus christi dysfunction by Holter monitor. His exercise perfusion scan was unremarkable. In view of his worsening symptoms, in order to further evaluate his chest pain, a cardiac catheterization was recommended. Patient underwent left heart catheterization with left and right coronary angiogram today. The findings are as follows. 2. 1. Left dominant coronary system.2. Minimal plaque in the left circumflex artery. 3. Mild hypokinesia of the anteroapical region.4. Minimally elevated LVEDP. 3. Based on the above angiographic findings, patient will be treated medically. Diagnostic RX Recommendation: medical therapy and/or counseling LV EDP: 20 mmHg Ventriculography Ejection Fraction: 50.0 % Left Ventriculography Findings: * Daily exam was performed the CORTES projection. The LV cavity appeared to be normal size. There is mild diffuse hypokinesis of the anteroapical region. There was no significant mitral valve prolapse or mitral regurgitation. No filling defects were noted. The overall LV ejection fraction was around 50%. Pressures Phase:Rest AO : 119 / 68 ( 89 ) @ 8:42:00 AM 101 / 67 ( 85 ) @ 8:44:00 AM 97 / 65 ( 80 ) @ 8:45:00 AM 135 / 71 ( 100 ) @ 8:54:00 AM 138 / 62 ( 93 ) @ 8:54:00 AM LV : 134 / 1 / 20 @ 8:53:00 AM 128 / 2 / 20 @ 8:54:00 AM 129 / 3 / 21 @ 8:54:00 AM Valves Phase:DefaultPhase AV : 0.0 @ 9:05:03 AM 0.0 @ 9:05:03 AM AV Mean Gradient: 0.0 @ 9:05:03 AM 0.0 @ 9:05:03 AM Clinical Evaluation EBL: 5mL-10mL Procedural Details Procedure Consent Obtained. Pre-Procedure Time Out. Identified patient by full name and date of as verbalized by the patient/guarantor. Does the consent match the physician's order: Yes. Accurate & Complete Informed Consent: Yes. Inpatient/Outpatient History & Physical on Chart: Yes. If H&P is completed, is and addenduem needed: No; If yes, is the addendum complete: N/A. Visualize and Verify Site with Patient/Guarantor: N/A. Relevant Radiology Images available: Yes. Pre-op teaching completed and patient verbalized understanding. The risks, benefits, and alternatives of sedation and/or procedure were discussed by physician. The patient agrees to continue. Procedure started. Current Diagnosis : Chest Pain. Physician arrived. [facility] Clinical Fraility Score: 3: Managing Well. Rail Operator Indications: Worsening Angina. Chest Pain Symptom Assessment: Atypical Angina. Correct patient, site and procedure confirmed by cath team. Current diagnosis: Chest Pain. PERRLA. Strong, equal hand chinese herbalist bilaterally. Lungs clear x 5 lobes. IV Site on Arrival: 20 gauge in the right anticubital. IV Fluids: 0.9% NaCl at KVO. 0 mL infused prior to freezer laboratory technician. Pre Procedural Pulses: bilateral dorsalis pedis was 3+. Pre Procedural Pulses: bilateral posterior tibial was 3+. Pre Procedural Pulses: bilateral radial was 3+. Oxygen started at 2liters/min via nasal canula. right groin was prepped with chloroprep then draped in the usual sterile fashion. right radial was prepped with chloroprep then draped in the usual sterile fashion. Baseline sample Acquired. HR: 52 BPM. Vital chart was stopped. Physician scrubbed in. Immediate Pre-Procedure Time Out. Correct Patient: Yes; Correct Procedure: Yes; Correct Site: Yes; Correct Patient Position: Yes; Correct Supplies: Yes; Dried Flammable Prep: Yes; Blood Products Available: N/A;. Vital chart was stopped. Lidocaine 1% infiltrated to the right radial. [employer] called to look at BP line. Vital chart was stopped. An attempt to gain access to the right radial artery was unsuccessful. Manual pressure was held as needed to stop the bleeding. Lidocaine 1% infiltrated to the right groin. Arterial access obtained with micropuncture set. A 5 tongan JL4 catheter in over wire. Multiple views taken of left coronary artery. Catheter removed over the standard wire. A 5 tongan JR4 catheter in over wire. Multiple views taken of right coronary artery. Catheter removed over the standard wire. A 5 tongan Angled Pig catheter in over wire. EDP Sample taken: LV 134/1,20; HR: 50 BPM; SpO2: 100%. LV gram performed in CORTES @ 10 mL/second for a total of 30 mL. EDP Sample taken: LV 128/2,20; HR: 58 BPM; SpO2: 100%. Pullback taken: LV 129/3,21; AO 135/71(100); Mean: 0mmHg, Peak to Peak: 0mmHg, SEP: 17sec/min; HR: 56 BPM; SpO2: 100%. Catheter removed over the standard wire. ACT drawn. Results 226 seconds. Therapeutic limits - pre-heparin administration 90-150 seconds and monitoring heparin during a vascular procedure >250 seconds. PERRLA. Strong, equal hand chinese herbalist bilaterally. No VTE prophylaxis required. Medication's Wasted: Lidocaine 1% = 3 mL. Medication's Wasted: Nitro = 50mcg. Medication's Wasted: Verapamil = 5 mg. Medication's Wasted: Heparin = 4500 units. Total IV fluids: 300 mL. A Suture was successful obtaining hemostatsis at the Right Femoral artery insertion site. Vital chart was stopped. Arterial sheath flushed and connected to tranducer and pressure bag with heparinized saline. Complications: None. Estimated blood loss: 5mL-10mL. Responsiveness - Normal response to verbal stimuli; alert and oriented, PERRLA. Airway - Unaffected, no intervention required; spontaneous ventilation. Circulation: W/N/L, pulses unchanged. Nausea/Vomiting: No. Procedure completed. Patient transferred by bed to CPRU. Access Site Site: Right Femoral artery Sheath Size: 6 Fr Hemostasis Method: Suture Hemostasis Success: Successful Procedure Medications Start: 8:14 AM Stop: 8:14 AM Medication: Versed 1 mg and Fentanyl 25 mcg Amount: 1 Route: I.V. Start: 8:16 AM Stop: 8:16 AM Medication: Zofran (ondansetron) Amount: 4 mg Route: I.V. Start: 8:41 AM Stop: 8:41 AM Medication: Heparin Amount: 1500 units Route: I.V. Start: 8:42 AM Stop: 8:42 AM Medication: Versed Amount: 1 mg Route: I.V. Start: 8:42 AM Stop: 8:42 AM Medication: 0.9% Saline Amount: 250 ml Route: I.V. bolus I, the attending physician, have reviewed and verified all procedure medications. Yes, all medications given per verbal order History/Risk Factors Hypertension: No Dyslipidemia: No Peripheral Arterial Disease (PAD): No Myocardial Infarction (CO): No Obesity: No Renal Disease: No Tobacco Use: Current/Recent(w/in 1 year) Prior Interventions PCI: No CABG: No Valve Surgery: No Report Signatures Finalized by Dr Bobbi Briseno MD [facility] on 06/21/2023 09:08 AM
[2023-06-20 07:32] LABS: Blood Urea Nitrogen 13 mg/dL (6-20); Calcium 8.9 mg/dL (8.5-10.5); Carbon Dioxide 26 mmol/L (22-29); Chloride 105 mmol/L (98-107); Creatinine Clr Calc Pharmacy 71.8187; Glomerular Filtration Rate 80.8 mL/min (90-130); Glucose 92 mg/dL (65-115); Osmolality Calculated 290 mOsm/kg (285-295); Sodium 140 mmol/L (136-145)
[2023-06-20 07:34] LABS: Anion Gap 13.1 (5-19); Potassium 4.1 mmol/L (3.5-5.1)
[2023-06-20 07:41] LABS: Basophils # 0.1 10^3/uL (0.0-0.1); Basophils % 1.1 %; Eosinophils # 0.2 10^3/uL (0.0-0.8); Eosinophils % 2.4 %; Hematocrit 52.3 % (37-53); Lymphocytes # 2.2 10^3/uL (0.8-4.8); Lymphocytes % 32.7 %; Mean Corpuscular HGB Conc 35.2 g/dL (30-55); Mean Corpuscular Hemoglobin 33.2 pg (27-33); Mean Corpuscular Volume 94.4 fl (82-101); Mean Platelet Volume 10.2 fL (7.4-10.4); Monocytes # 0.6 10^3/uL (0.2-0.9); Monocytes % 8.3 %; Neutrophils # 3.68 10^3/uL (1.8-7.7); Neutrophils % 55.3 %; Nucleated Red Blood Cells % 0 %; Platelet Count 197 10^3/cmm (157-399); Red Blood Count 5.54 10^6/uL (3.85-5.65); Red Cell Distribution Width 13.1 % (12.1-15.1); White Blood Count 6.64 10^3/uL (3.29-11.43)
--- NOTE | 2023-06-20 07:56 | W.PM.OPSUD ---
Surgery/Procedure H&P Update DATE OF PROCEDURE: June 20, 2023 DATE H&P PERFORMED: 06/11/23 H&P UPDATE INFORMATION: I have reviewed H&P completed within last 30 days, I have examined patient prior to procedure and No changes to prior documentation PREOP DIAGNOSIS: Possible ASHD/sinus node dysfunction PRIMARY INDICATION FOR PROCEDURE: Chest pain/bradycardia/near syncope PLANNED PROCEDURE: Operation Date: 06/20/23 08:30 Proposed Procedures p [facility] [id number] R07.9, R06.02, F17.210(Left) - Bobbi Briseno MD PATIENT REASSESSED PRIOR TO SEDATION, WITH NO CHANGE NOTED: Yes PHYSICAL EXAM: alert, oriented x 3 and clear to auscultation bilaterally AIRWAY EVAL/ANESTHESIA PLAN: normal airway, see other exam findings, ASA III, Local Anesthesia, Risks, benefits & alternatives of sedation and/or procedure discussed and Patient agrees to continue as planned
--- NOTE | 2023-06-20 09:10 | SUR.EXTENDED ---
Received the patient back from the mason tender restoration labor via bed s/p Diagnostic [facility]. Patient drowsy. Awakens to verbal stimuli. A & 0 x 3. director biomedical engineering placed and vital signs obtained. 6 Serbian sheath sutured in the right groin to pressure bag. No bleeding or hematoma noted. Dressing D/I. No other assessment changes noted from pre cath assessment. Will transfer to room [ ] after recovery. Family at bedside. No concerns voiced at this time.
--- NOTE | 2023-06-20 09:39 | SUR.EXTENDED ---
Transferred to room 112-1 via bed.
--- NOTE | 2023-06-20 10:02 | PC.NURSE ---
Patient came from labourers to CSU at 0955 with a right groin sheath and pressure bag.
--- NOTE | 2023-06-20 10:14 | ECG_ITS ---
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 Measurements Intervals Ewing Rate: 45 P: 75 VA: 191 QRS: 79 QRSD: 108 T: 70 QT: 491 QTc: 429 Interpretive Statements SINUS BRADYCARDIA ST ELEVATION, PROBABLY EARLY REPOLARIZATION [ST ELEVATION WITH NORMALLY INFLECTED T-WAVE] Compared to ECG 02/19/2023 17:23:35 ST (T wave) deviation now present Early repolarization now present Sinus arrhythmia no longer present Electronically Signed On 06-20-2023 10:57:42 TUBE CARRIER by Stephane Mccoy M.D. [email or web address] [facility].[id number]
--- NOTE | 2023-06-20 11:07 | PC.NURSE ---
ACT ACT drawn 2 hours post cath as verbal order from Dr. Briseno. ACT result [id number].
--- NOTE | 2023-06-20 11:21 | PC.NURSE ---
Provider is called for an order for pain, order is given for Fentanyl 25mg once prior to pulling the sheath.
[2023-06-20] MEDS: fentaNYL 50 mcg/mL INJ 2mL 25 MCG IVP (11:46)
[2023-06-20] MEDS: methocarbamol 750 mg Tablet PO (15:44)
--- NOTE | 2023-06-20 18:51 | PC.NURSE ---
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 Sheath was pulled at 1200, hemastasis was obtained at 1201. Manual pressure is held x 20 minutes. A dressing of 4 x 4 and tegaderm is applied. Patients vitals were stable throughout. Patient tolerated well.
== END 2023-06-20 19:44 | disposition home or self-care (01) ==
LOC: CCL 06:53 → CSU 10:08
PROVIDERS: PCP Family Medicine; Visit Provider Internal Medicine Cardiovascular Disease
DX: I25.10 Atherosclerotic heart disease of native coronary artery without angina pectoris (principal); F17.210 Nicotine dependence, cigarettes, uncomplicated; Z81.1 Family history of alcohol abuse and dependence; Z82.49 Family history of ischemic heart disease and other diseases of the circulatory system; G43.711 Chronic migraine without aura, intractable, with status migrainosus; I49.5 Sick sinus syndrome
CPT/HCPCS: 36415; 80048; 85025; 85347; 93005; 93458; 96361; 96365; 99152; 99153; C1769; C1887; C1894; J1644; J2250; J2405; J3010; J3490; J7030; Q0163; Q9967

== ENCOUNTER → 2023-07-09 14:13 | Outpatient (BNVA) | payer MEDICAID, SELFPAY | PROVIDERS: PCP Family Medicine; Visit Provider Nurse Practitioner Family | DX: Z09 Encounter for follow-up examination after completed treatment for conditions other than malignant neoplasm (principal); R07.89 Other chest pain | CPT/HCPCS: 36415; 80048; 99214 ==

== ENCOUNTER → 2023-08-09 13:16 | Outpatient (BNVA) | payer MEDICAID, SELFPAY | PROVIDERS: PCP Family Medicine; Visit Provider Specialist | DX: G40.109 Localization-related (focal) (partial) symptomatic epilepsy and epileptic syndromes with simple partial seizures, not intractable, without status epilepticus (principal); G43.711 Chronic migraine without aura, intractable, with status migrainosus | CPT/HCPCS: 64615; 99213; J0585 ==

== ENCOUNTER → 2023-11-08 12:53 | Outpatient (BNVA) | payer MEDICAID, SELFPAY | PROVIDERS: PCP Family Medicine; Visit Provider Specialist | DX: G43.711 Chronic migraine without aura, intractable, with status migrainosus (principal); G40.109 Localization-related (focal) (partial) symptomatic epilepsy and epileptic syndromes with simple partial seizures, not intractable, without status epilepticus; J18.9 Pneumonia, unspecified organism; A15.9 Respiratory tuberculosis unspecified; R06.02 Shortness of breath; F17.210 Nicotine dependence, cigarettes, uncomplicated | CPT/HCPCS: 64615; 99214; J0585 ==

== ENCOUNTER 2023-11-20 10:30 | Outpatient (CLI) | payer MEDICAID, SELFPAY ==
--- NOTE | 2023-11-20 11:00 | CT_ITS ---
WS: [id number] NONCONTRAST AND CONTRAST-ENHANCED CT CHEST TECHNIQUE: Noncontrast and contrast-enhanced CT chest with coronal and sagittal reformatted images. CLINICAL INFORMATION: J18.9 - Pneumonia, unspecified organism COMPARISON: None. DLP: 444.[address] scans at [facility] use at least one of these dose optimization techniques: automated e xposure control; mA and/or kV adjustment per patient size (includes targeted exams where dose is matc hed to clinical indication); or iterative reconstruction. FINDINGS: Mild chronic emphysematous changes. Slight bibasilar atelectasis. No focal pneumonia or ple ural fluid. Hazy groundglass nodule RIGHT middle lobe measuring 5 mm. Recommend 6-month follow-up. Normal caliber thoracic aorta. Normal caliber descending thoracic aorta. Proximal main pulmonary fly marry are normal. No mediastinal or hilar lymphadenopathy. No axillary lymphadenopathy. Adrenal glands are normal. Normal GE junction. CT/CT chest wo/w con [id number] IMPRESSION: 1. 5 mm groundglass nodule RIGHT middle lobe. Recommend 6-month chest CT follo w-up. 2. Mild chronic emphysematous changes. 3. Slight bibasal atelectasis. No acute pulmonary infiltrates. 4. No other acute findings.
[2023-11-20] MEDS: iohexol 350 mg/mL 500 mL Btl (per mL) IV (11:11)
== END 2023-11-20 10:31 | disposition home or self-care (01) ==
LOC: RAD 10:32
PROVIDERS: PCP Family Medicine; Visit Provider Specialist
DX: R91.8 Other nonspecific abnormal finding of lung field (principal); J18.9 Pneumonia, unspecified organism; R06.02 Shortness of breath
CPT/HCPCS: 71270; Q9967

== ENCOUNTER → 2023-12-13 10:48 | Outpatient (BNVA) | payer MEDICAID, SELFPAY | PROVIDERS: PCP Family Medicine; Visit Provider Internal Medicine Cardiovascular Disease | DX: R06.02 Shortness of breath (principal) | CPT/HCPCS: 36415; 80048; 83880 ==

== ENCOUNTER → 2024-02-01 12:53 | Outpatient (BNVA) | payer MEDICAID, SELFPAY | PROVIDERS: PCP Family Medicine; Visit Provider Specialist | DX: G43.711 Chronic migraine without aura, intractable, with status migrainosus (principal); G40.109 Localization-related (focal) (partial) symptomatic epilepsy and epileptic syndromes with simple partial seizures, not intractable, without status epilepticus; J18.9 Pneumonia, unspecified organism; A15.9 Respiratory tuberculosis unspecified; R06.02 Shortness of breath; F17.210 Nicotine dependence, cigarettes, uncomplicated; R03.0 Elevated blood-pressure reading, without diagnosis of hypertension | CPT/HCPCS: 64615; 99213; J0585 ==

== ENCOUNTER → 2024-05-02 13:03 | Outpatient (BNVA) | payer MEDICAID, SELFPAY | PROVIDERS: PCP Family Medicine; Visit Provider Specialist | DX: G43.711 Chronic migraine without aura, intractable, with status migrainosus (principal); G40.109 Localization-related (focal) (partial) symptomatic epilepsy and epileptic syndromes with simple partial seizures, not intractable, without status epilepticus; J18.9 Pneumonia, unspecified organism; A15.9 Respiratory tuberculosis unspecified; R06.02 Shortness of breath; R03.0 Elevated blood-pressure reading, without diagnosis of hypertension; F17.210 Nicotine dependence, cigarettes, uncomplicated | CPT/HCPCS: 64615; 99213; J0585 ==

== ENCOUNTER → 2024-08-08 13:35 | Outpatient (BNVA) | payer MEDICAID, SELFPAY | PROVIDERS: PCP Family Medicine; Visit Provider Specialist | DX: G43.711 Chronic migraine without aura, intractable, with status migrainosus (principal); G40.109 Localization-related (focal) (partial) symptomatic epilepsy and epileptic syndromes with simple partial seizures, not intractable, without status epilepticus; J18.9 Pneumonia, unspecified organism; A15.9 Respiratory tuberculosis unspecified; R06.02 Shortness of breath; F17.210 Nicotine dependence, cigarettes, uncomplicated; R03.0 Elevated blood-pressure reading, without diagnosis of hypertension | CPT/HCPCS: 64615; 99212; J0585; J9999 ==

== ENCOUNTER 2024-08-28 10:46 | Emergency (ER) | payer MEDICAID, SELFPAY ==
[2024-08-28 10:47] VITALS: BP 158/91; PULSE 89; RESP 18; TEMP 36.7; O2SAT 96; BMI 17.9
--- NOTE | 2024-08-28 10:51 | XRR_ITS ---
PROCEDURE INFORMATION: Exam: XR Chest Exam date and time: 08/28/2024 10:54 AM Age: 44 years old Clinical indication: Cough and dyspnea; Additional info: Dyspnea/cough TECHNIQUE: Imaging protocol: Radiologic exam of the chest. Views: 1 view. Total images: 3 COMPARISON: CT chest wo/w con [id number] 11/20/2023 11:03 AM FINDINGS: Lungs: Pulmonary hyperinflation, suggesting COPD. Pleural spaces: Unremarkable. No pleural effusion. No pneumothorax. Heart/Mediastinum: Unremarkable. No cardiomegaly. Bones/joints: Unremarkable. XR/XR chest 1V portable [id number] IMPRESSION: 1. Pulmonary hyperinflation, suggesting COPD. 2. No acute cardiopulmonary process.
--- NOTE | 2024-08-28 11:00 | ED_ITS ---
HPI - Seizure 2 General: Chief Complaint: Seizure Stated Complaint: Seizure Time Seen by Provider: 08/28/24 10:51 History of Present Illness: HPI Narrative: 44 old male presents emergency room in [facility] department. He was arrested this morning when he went to be booked he fell on the floor and had what appeared to be a seizure. He has had seizures in the past he is on levetiracetam and atogepant. He is also on clobazam. He is seen Dr. Villalobos in the past. He said problems with chronic migraines and received Botox injections for this. Reviewing [facility] notes he is in the past has had up to several seizures per week has been some concern that these may be nonepileptic events however he did have some temporal lobe epilepsy on EEG according to our documentation which is why he is being treated. He complains of vague pains in his abdomen and is nauseous at this time also has some extremity pain into relates to his seizures. Seizure History: Yes Associated symptoms: Deny chest pain, chills or fever(s) Related Data Home Medications ?Medication ?Instructions ?Recorded ?Confirmed omeprazole 20 mg capsule,delayed 20 mg PO DAILY 08/28/24 release ciprofloxacin HCl 500 mg tablet 500 mg PO DAILY 08/28/24 gabapentin 400 mg capsule See Rx Instructions .Route . COMPLEX 08/28/24 08/28/24 levetiracetam 1,000 mg tablet 1,500 mg PO BID 08/28/24 08/28/24 mupirocin 2 % topical ointment 1 applic topical DAILY 08/28/24 08/28/24 olanzapine 5 mg tablet 5 mg PO QPM 08/28/24 5 Previous Rx's ?Medication ?Instructions ?Recorded clobazam 20 mg tablet 20 mg PO TID #90 tabs varenicline tartrate 1 mg tablet See Rx Instructions . Route 08/05/24 .COMPLEX #56 tabs atogepant 60 mg tablet (Qulipta) 60 mg PO DAILY #30 ta bs 08/08/24 Allergies Allergy/AdvReac Type Severity Reaction Status Date / Time doxycycline Allergy Unknown Unknown Verified 08/08/24 13:50 Penicillins Allergy ALGY-Hives Verified 08/08/24 13:50 Review of Systems 2 Const: Denies: fever(s) or chills Card: Denies: chest pain Resp: Denies: dyspnea GI: Denies: abdominal pain : Denies: dysuria, urinary frequency or urinary urgency Musc: Denies: neck pain or back pain Skin/Breast: Denies: rash PFSH ED 2 PFSH: Medical History History of wound infection required wound care to sores on both knees Pulmonary fungal infection (2021) treated with prolonged course of medication, specific fungi unknown by patient, treated at [facility] PTSD (post-traumatic stress disorder) Lumbar fracture with cord injury Chronic migraine without aura, intractable, with status migrainosus botox treatment Postherpetic neuralgia Tuberculosis (2020) treated with 6 months antibiotics Anxiety and depression Temporal lobe epilepsy Surgical History No history of previous surgery this diagnosis entered into chart 02/19/23 Family History Family/Other Arrhythmia multiple family members with pacemakers (7) Sister CAD (coronary artery disease) cardiac stents Family/Other Family history of premature coronary artery disease uncle near age 50 from heart attack Other Cancer Stroke Social History Smoking and tobacco/nicotine status: current every day tobacco/nicotine user cigarettes Packs smoked per day: 1 Alcohol intake: never Substance/Drug Use: current Substance/Drug use frequency: few times a month service: Yes Current occupational status: disabled Physical Exam 2 Const: GENERAL APPEARANCE: cooperative ORIENTATION/CONSCIOUSNESS: Yes awake HENMT: COMMON NORMALS: normocephalic, atraumatic and hearing grossly normal bilaterally HEAD & SCALP: normocephalic and atraumatic Neck/C-Spine: OTHER: Full range of motion no pain no crepitus no step-offs no pain with palpation no pain with flexion or extension Resp: COMMON NORMALS: normal respiratory effort, No retractions, No use of accessory muscles and clear to auscultation bilaterally AUSCULTATION: clear to auscultation bilaterally Cardio: COMMON NORMALS: regular rate, regular rhythm and No murmurs present (Cardio) RATE: regular rate RHYTHM: regular rhythm GI: COMMON NORMALS: Soft to palpation and No hepatosplenomegaly present A USCULTATION: Yes normoactive bowel sounds PALPATION: Yes Soft to palpation, No Tenderness to palpation present (GI), No Guarding due to palpation present (GI) and Yes No hepatosplenomegaly present Extremity: COMMON NORMALS: normal to inspection, capillary refill normal, no clubbing, cyanosis or edema, no calf tenderness and no pedal edema Skin: COMMON NORMALS: no rashes or lesions noted GENERAL SKIN EXAM: no rashes or lesions noted Course 2 Vital Signs: Vital signs: Vital Signs Temperature 98.1 F 08/28/24 10:47 Pulse Rate 77 08/28/24 12:39 Respiratory Rate 18 08/28/24 10:47 Blood Pressure 126/92 08/28/24 12:39 Pulse Oximetry 95 08/28/24 12:39 Oxygen Delivery Me thod Room Air 08/28/24 11:30 MDM - Seizure MDM Narrative Medical decision making narrative: Lactic acid elevated likely from seizure activity CT of the head negative for any acute intracranial pathology or acute bleed. Patient has a known history of seizures. There is some concern about functional neurologic episodes but there is also an EEG that showed temporal lobe epilepsy at this point given his known history of think he can be discharged with the . He should continue to take all of his medications as prescribed. Medicines were given along with discharge instructions. Lab Data 08/28/24 10:40 08/28/24 10:40 Labs: Radiology Impressions Chest X-Ray 08/28/24 10:51 IMPRESSION: 1. Pulmonary hyperinflation, suggesting COPD. 2. No acute cardiopulmonary process. Head CT 08/28/24 11:09 IMPRESSION: 1. No acute intracranial pathology detected. 2. There is right frontal scalp soft tissue swelling/contusion. Laboratory Results WBC 7.29 10^3/uL (3.29-11.43) 08/28/24 10:40 RBC 5.77 10^6/uL (3.85-5.65) H 08/28/24 10:40 Hgb 18.50 g/dL (11.27-16.99) H 08/28/24 10:40 Hct 52.3 % (37-53) 08/28/24 10:40 MCV 90.6 fl (82-101) 08/28/24 10:40 MCH 32.1 pg (27-33) 08/28/24 10:40 MCHC 35.4 g/dL (30-55) 08/28/24 10:40 RDW 12.7 % (12.1-15.1) 08/28/24 10:40 Plt Count 226 10^3/cmm (157-399) 08/28/24 10:40 MPV 10.1 fL (7.4-10.4) 08/28/24 10:40 Neut % (Auto) 49.1 % 08/28/24 10:40 Lymph % (Auto) 41.2 % 08/28/24 10:40 [place] % (Auto) 7.4 % 08/28/24 10:40 Eos % (Auto) 1.2 % 08/28/24 10:40 Baso % (Auto) 0.8 % 08/28/24 10:40 Neut # (Auto) 3.58 10^3/uL (1.8-7.7) 08/28/24 10:40 Lymph # (Auto) 3.0 10^3/uL (0.8-4.8) 08/28/24 10:40 [place] # (Auto) 0.5 10^3/uL (0.2-0.9) 08/28/24 10:40 Eos # (Auto) 0.1 10^3/uL (0.0-0.8) 08/28/24 10:40 Baso # (Auto) 0.1 10^3/uL (0.0-0.1) 08/28/24 10:40 Nucleated RBC % (auto) 0 % 08/28/24 10:40 Nucleated RBCs # 0.0 /100WBC 08/28/24 10:40 Sodium 137 mmol/L (136-145) 08/28/24 10:40 Potassium 4.1 mmol/L (3.5-5.1) 08/28/24 10:40 Chloride 100 mmol/L (98-107) 08/28/24 10:40 Carbon Dioxide 21 mmol/L (22-29) L 08/28/24 10:40 Anion Gap 20.1 (5-19) H 08/28/24 10:40 BUN 7 mg/dL (6-20) 08/28/24 10:40 Creatinine 0.9 mg/dL (0.7-1.2) 08/28/24 10:40 GFR Calculation 90.8 mL/min (90-130) 08/28/24 10:40 Glucose 137 mg/dL (65-115) H 08/28/24 10:40 Calculated Osmolality 284 mOsm/kg (285-295) L 08/28/24 10:40 Lactic Acid 3.8 mmol/L (0.5-2.2) H 08/28/24 10:40 Calcium 9.4 mg/dL (8.5-10.5) 08/28/24 10:40 Total Bilirubin 0.4 mg/dL (0.15-1.2) 08/28/24 10:40 AST 15 U/L (0-40) 08/28/24 10:40 ALT 12 U/L (0-41) 08/28/24 10:40 Alkaline Phosphatase 144 U/L (40-130) H 08/28/24 10:40 Ammonia 48 umol/L (16-60) 08/28/24 10:40 Creatine Kinase 64 U/L (39-308) 08/28/24 10:40 Total Protein 7.4 g/dL (6.6-8.7) 08/28/24 10:40 Albumin 4.6 g/dL (3.5-5.2) 08/28/24 10:40 Globulin 2.8 g/dL (1.3-4.6) 08/28/24 10:40 Urine Color Yellow (Yellow) 08/28/24 11:15 Urine Appearance Clear (CLEAR) 08/28/24 11:15 Urine pH 6.5 (5-7) 08/28/24 11:15 Ur Specific [place] 1.013 (1.005-1.030) 08/28/24 11:15 Urine Protein Trace (Negative) A 08/28/24 11:15 Urine Glucose (UA) Negative (Normal) 08/28/24 11:15 Urine Ketones Negative (Negative) 08/28/24 11:15 Urine Blood Negative (Negative) 08/28/24 11:15 Urine Nitrate Negative (Negative) 08/28/24 11:15 Urine Bilirubin Negative (Negative) 08/28/24 11:15 Urine Urobilinogen 1.0 mg/dL (Negative) 08/28/24 11:15 Ur Leukocyte Esterase Negative (Negative) 08/28/24 11:15 Urine RBC 0-2 /hpf (0-2) 08/28/24 11:15 Urine WBC 0-5 /hpf (0-5) 08/28/24 11:15 Ur Squamous Epith Cells 0-5 /hpf (0-5) 08/28/24 11:15 Amorphous Sediment Not Reportable 08/28/24 11:15 Urine Bacteria None seen /hpf (NONE) 08/28/24 11:15 Hyaline Casts 2.05 /lpf 08/28/24 11:15 All radiology interpretation(s) finalized by discharge Discharge Plan Discharge Patient Disposition: Home Clinical Impression: Temporal lobe epilepsy Condition: Stable Prescriptions: No Action clobazam 20 mg tablet 20 mg PO TID Qty: 90 5RF Qulipta 60 mg tablet 60 mg PO DAILY Qty: 30 3RF Rx Instructions: treatment resistant chronic migraine varenicline tartrate 1 mg tablet See Rx Instructions .ROUTE .COMPLEX Qty: 56 3RF Dose Instruction: TAKE ONE TABLET BY MOUTH TWICE DAILY. ALWAYS TAKE WITH FOOD AND NEVER AFTER 4 PM. Rx Instructions: TAKE ONE TABLET BY MOUTH TWICE DAILY. ALWAYS TAKE WITH FOOD AND NEVER AFTER 4 PM. gabapentin 400 mg capsule See Rx Instructions .ROUTE .COMPLEX Rx Instructions: TAKE 1 CAPSULE BY MOUTH ONCE DAILY IN THE MORNING THEN 1 CAP IN THE AFTERNOON THEN 2 CAPS AT BEDTIME ciprofloxacin HCl 500 mg tablet 500 mg PO DAILY mupirocin 2 % ointment 1 applic TOPICAL DAILY levetiracetam 1,000 mg tablet 1,500 mg PO BID Rx Instructions: TAKE 1 & 1/2 (ONE & ONE-HALF) TABLETS BY MOUTH TWICE DAILY olanzapine 5 mg tablet 5 mg PO QPM omeprazole 20 mg capsule,delayed release(DR/EC) 20 mg PO DAILY Discharge Orders: Discharge ED (Routine); Ordered 08/28/24 Ordered By: Bob Lozada Referrals: Kate Ham MD [Primary Care Provider, Family Practice] Discharge Diet: Usual diet Discharge Activity: Resume usual activity Patient Instructions: Opioid Safety, Pain Management Activity Restrictions/Additional Instructions: Thank you for choosing [facility] for your healthcare needs today. It is very important that you follow up as instructed or that you return to the Emergency Department should you have concerns or if your condition changes or worsens in any way. You are seen in the emergency room after a seizure-like episode. The attached report is in your head during the episode you did have a hematoma on the forehead. CT of your head was negative. Your other labs are unremarkable. Given you have a known history of seizures recommend continue your current medications and follow-up with Dr. Villalobos no need for admission to the hospital regarding this at this time. Print Language: Faroese Coding Level of Care Code ED Mechanical Technical Service Specialist for Wes Lombardo
--- NOTE | 2024-08-28 11:09 | CTR_ITS ---
PROCEDURE INFORMATION: Exam: CT Head Without Contrast Exam date and time: 08/28/2024 11:47 AM Age: 44 years old Clinical indication: Injury or trauma; Fall; Blunt trauma (contusions or hematomas); Consciousness not specified; Additional info: Head trauma TECHNIQUE: Imaging protocol: Computed tomography of the head without contrast. Total images: 278 Radiation optimization: All CT scans at this facility use at least one of these dose optimization techniques: automated exposure control; mA and/or kV adjustment per patient size (includes targeted exams where dose is matched to clinical indication); or iterative reconstruction. COMPARISON: CT head wo con* [id number] 03/03/2022 3:55 PM RADIATION DOSE METRICS: Total DLP (mGy-cm): 1152.21 FINDINGS: Brain: Normal. No hemorrhage. Unremarkable white matter. No mass effect. Cerebral ventricles: No ventriculomegaly. Paranasal sinuses: Visualized sinuses are unremarkable. No fluid levels. Mastoid air cells: Visualized mastoid air cells are well aerated. Bones: Unremarkable. No acute fracture. Soft tissues: There is right frontal scalp soft tissue swelling/contusion. CT/CT head wo con* [id number] IMPRESSION: 1. No acute intracranial pathology detected. 2. There is right frontal scalp soft tissue swelling/contusion.
[2024-08-28 11:21] LABS: Basophils # 0.1 10^3/uL (0.0-0.1); Basophils % 0.8 %; Eosinophils # 0.1 10^3/uL (0.0-0.8); Eosinophils % 1.2 %; Hematocrit 52.3 % (37-53); Lymphocytes % 41.2 %; Mean Corpuscular HGB Conc 35.4 g/dL (30-55); Mean Corpuscular Hemoglobin 32.1 pg (27-33); Mean Corpuscular Volume 90.6 fl (82-101); Mean Platelet Volume 10.1 fL (7.4-10.4); Monocytes # 0.5 10^3/uL (0.2-0.9); Monocytes % 7.4 %; Neutrophils # 3.58 10^3/uL (1.8-7.7); Neutrophils % 49.1 %; Nucleated Red Blood Cells % 0 %; Platelet Count 226 10^3/cmm (157-399); Red Blood Count 5.77 10^6/uL (3.85-5.65); Red Cell Distribution Width 12.7 % (12.1-15.1); White Blood Count 7.29 10^3/uL (3.29-11.43)
[2024-08-28 11:27] LABS: Bilirubin Urine Negative (Negative); Blood Urine Negative (Negative); Glucose Urine UA Negative (Normal); Ketones Urine Negative (Negative); Leukocyte Esterase Urine Negative (Negative); Nitrate Urine Negative (Negative); Protein Urine Trace (Negative); Specific Gravity, Urine 1.013 (1.005-1.030); Urine Appearance Clear (CLEAR); Urine Color Yellow (Yellow); pH Urine 6.5 (5-7)
[2024-08-28 11:30] VITALS: PULSE 81; O2SAT 95
[2024-08-28 11:32] LABS: Add Urine Microscopic? YES; Bacteria Urine None Seen /hpf; Hyaline Casts Urine 2.05 /lpf; RBC Urine 0-2 /hpf (0-2); Squamous Epithelial Cell Urine 0-5 /hpf (0-5); WBC Urine 0-5 /hpf (0-5)
[2024-08-28 11:38] LABS: Add Urine Culture? No
[2024-08-28 11:42] LABS: Ammonia 48 umol/L (16-60); Lactic Sepsis W/Reflex 3.8 mmol/L (0.5-2.2)
[2024-08-28 11:44] LABS: Alanine Aminotransferase 12 U/L (0-41); Albumin Level 4.6 g/dL (3.5-5.2); Alkaline Phosphatase 144 U/L (40-130); Anion Gap 20.1 (5-19); Aspartate Amino Transferase 15 U/L (0-40); Blood Urea Nitrogen 7 mg/dL (6-20); Calcium 9.4 mg/dL (8.5-10.5); Carbon Dioxide 21 mmol/L (22-29); Chloride 100 mmol/L (98-107); Creatine Phosphokinase 64 U/L (39-308); Creatinine Clr Calc Pharmacy 82.2485; Globulin 2.8 g/dL (1.3-4.6); Glomerular Filtration Rate 90.8 mL/min (90-130); Glucose 137 mg/dL (65-115); Osmolality Calculated 284 mOsm/kg (285-295); Potassium 4.1 mmol/L (3.5-5.1); Sodium 137 mmol/L (136-145); Total Bilirubin 0.4 mg/dL (0.15-1.2); Total Protein 7.4 g/dL (6.6-8.7)
[2024-08-28 12:39] VITALS: BP 126/92; PULSE 77; O2SAT 95
[2024-08-28 13:08] LABS: Reflex Lactate Order REFLEX LACTIC ORDERD
== END 2024-08-28 12:40 | disposition home or self-care (01) ==
PROVIDERS: Emergency Provider Family Medicine; PCP Family Medicine
DX: G40.109 Localization-related (focal) (partial) symptomatic epilepsy and epileptic syndromes with simple partial seizures, not intractable, without status epilepticus (principal); F17.210 Nicotine dependence, cigarettes, uncomplicated
CPT/HCPCS: 70450; 71045; 80053; 81001; 82140; 82550; 83605; 85025; 99285

== ENCOUNTER 2024-09-05 23:27 | Emergency (ER) | payer MEDICAID, SELFPAY ==
[2024-09-05 23:37] VITALS: BP 144/103; PULSE 71; RESP 16; TEMP 36.6; O2SAT 97; BMI 18.6
--- NOTE | 2024-09-05 23:55 | W.ED.SEIZURE ---
HPI - Seizure General: Chief Complaint: Seizure Stated Complaint: SEIZURE Time Seen by Provider: 09/05/24 23:41 History of Present Illness: HPI Narrative: The patient, an inmate, presents to the emergency department after experiencing a LOC. He reports that while talking with another inmate, he suddenly became confused, repeatedly asking what'd you say? He then turned pale and fell, hitting his head on the floor. No tonic-clonic movements were noted. Other inmates stated that he had a seizure. The patient has no recollection of the event itself but describes the information provided by the other inmate. Following the seizure, he is experiencing pain on the right side of his face, which he describes as really hurts bad. He also mentions that his right leg hurts, but he is less concerned about this. The patient reports blurred vision in both eyes, describing the doctor as real blurry but still visible, just a little hazy. Additionally, the patient mentions that he has not had a bowel movement in a week. He states that he is prescribed MiraLax for constipation, but due to it being an [id number] medication, it is not allowed in the long-term. This ongoing constipation issue has already been reported to the jail staff. Seizure History: Yes Related Data Home Medications ?Medication ?Instructions ?Recorded ?Confirmed omeprazole 20 mg capsule,delayed 20 mg PO DAILY 02/19/23 08/28/24 release ciprofloxacin HCl 500 mg tablet 500 mg PO DAILY 08/28/24 08/28/24 gabapentin 400 mg capsule See Rx Instructions .Route .COMPLEX 08/28/24 08/28/24 levetiracetam 1,000 mg tablet 1,500 mg PO BID 08/28/24 08/28/24 mupirocin 2 % topical ointment 1 applic topical DAILY 08/28/24 08/28/24 olanzapine 5 mg tablet 5 mg PO QPM 08/28/24 08/28/24 Previous Rx's ?Medication ?Instructions ?Recorded clobazam 20 mg tablet 20 mg PO TID #90 tabs 05/02/24 varenicline tartrate 1 mg tablet See Rx Instructions .Route 08/05/24 .COMPLEX #56 tabs atogepant 60 mg tablet (Qulipta) 60 mg PO DAILY #30 tabs 08/08/24 Allergies Allergy/AdvReac Type Severity Reaction Status Date / Time doxycycline Allergy Unknown Unknown Verified 08/08/24 13:50 Penicillins Allergy ALGY-Hives Verified 08/08/24 13:50 Review of Systems General: Reports: 10 or more systems reviewed and unremarkable except in HPI and below PFSH ED PFSH: Medical History History of wound infection required wound care to sores on both knees Pulmonary fungal infection (2021) treated with prolonged course of medication, specific fungi unknown by patient, treated at [facility] PTSD (post-traumatic stress disorder) Lumbar fracture with cord injury Chronic migraine without aura, intractable, with status migrainosus botox treatment Postherpetic neuralgia Tuberculosis (2020) treated with 6 months antibiotics Anxiety and depression Temporal lobe epilepsy Surgical History No history of previous surgery this diagnosis entered into chart 02/19/23 Family History Family/Other Arrhythmia multiple family members with pacemakers (7) Sister CAD (coronary artery disease) cardiac stents Family/Other Family history of premature coronary artery disease uncle near age 50 from heart attack Other Cancer Stroke Social History Smoking and tobacco/nicotine status: current every day tobacco/nicotine user cigarettes Packs smoked per day: 1 Alcohol intake: never Substance/Drug Use: current Substance/Drug use frequency: few times a month service: Yes Current occupational status: disabled Physical Exam Const: COMMON NORMALS: no acute distress, patient oriented x3, healthy appearing, alert and well nourished HENMT: COMMON NORMALS: normocephalic HEAD & SCALP: normocephalic FACE & SINUS: edema (Swelling noted to the right cheekbone.) Eye: COMMON NORMALS: EOMs intact bilaterally Neck/C-Spine: COMMON NORMALS: full ROM and supple Resp: COMMON NORMALS: normal respiratory effort, No retractions and clear to auscultation bilaterally AUSCULTATION: clear to auscultation bilaterally Cardio: COMMON NORMALS: regular rate, regular rhythm, No gallops present (Cardio) and No murmurs present (Cardio) RATE: regular rate RHYTHM: regular rhythm GI: COMMON NORMALS: Soft to palpation and non-tender PALPATION: Yes Soft to palpation Extremity: GENERAL: Yes normal exam except as noted Neuro: COMMON NORMALS: patient oriented x3 SENSORIUM/ORIENTATION: Yes alert Skin: COMMON NORMALS: no rashes or lesions noted GENERAL SKIN EXAM: no rashes or lesions noted Course Vital Signs: Vital signs: Vital Signs Temperature 98 F 09/05/24 23:37 Pulse Rate 58 L 09/06/24 00:23 Respiratory Rate 16 09/06/24 00:23 Blood Pressure 124/87 09/06/24 00:23 Pulse Oximetry 97 09/06/24 00:23 Oxygen Delivery Me thod Room Air 09/06/24 00:23 MDM - Seizure Lab Data Labs: Radiology Impressions Face CT 09/05/24 23:56 IMPRESSION: No acute findings. All radiology interpretation(s) finalized by discharge ED provider radiology interpretation(s): 44-year-old male presents to the emergency department for evaluation of loss of consciousness and pain to his face. Based on his description of the event it sounds more like a vasovagal event as compared to seizure. Normal vital signs here in the emergency department. At this point his chief complaint is the pain in his face. CT face ruled out facial bone fracture. Encourage patient to follow-up with his primary care for further evaluation of the loss of consciousness. Tylenol or ibuprofen for the pain. Patient discharged home in stable condition. Discharge Plan Discharge Patient Disposition: Home Clinical Impression: Face pain Fall Qualifiers: Encounter type: initial encounter Qualified Code(s): W19.XXXA - Unspecified fall, initial encounter Condition: Stable Prescriptions: No Action clobazam 20 mg tablet 20 mg PO TID Qty: 90 5RF Qulipta 60 mg tablet 60 mg PO DAILY Qty: 30 3RF Rx Instructions: treatment resistant chronic migraine varenicline tartrate 1 mg tablet See Rx Instructions .ROUTE .COMPLEX Qty: 56 3RF Dose Instruction: TAKE ONE TABLET BY MOUTH TWICE DAILY. ALWAYS TAKE WITH FOOD AND NEVER AFTER 4 PM. Rx Instructions: TAKE ONE TABLET BY MOUTH TWICE DAILY. ALWAYS TAKE WITH FOOD AND NEVER AFTER 4 PM. gabapentin 400 mg capsule See Rx Instructions .ROUTE .COMPLEX Rx Instructions: TAKE 1 CAPSULE BY MOUTH ONCE DAILY IN THE MORNING THEN 1 CAP IN THE AFTERNOON THEN 2 CAPS AT BEDTIME ciprofloxacin HCl 500 mg tablet 500 mg PO DAILY mupirocin 2 % ointment 1 applic TOPICAL DAILY levetiracetam 1,000 mg tablet 1,500 mg PO BID Rx Instructions: TAKE 1 & 1/2 (ONE & ONE-HALF) TABLETS BY MOUTH TWICE DAILY olanzapine 5 mg tablet 5 mg PO QPM omeprazole 20 mg capsule,delayed release(DR/EC) 20 mg PO DAILY Discharge Orders: Discharge ED (Routine); Ordered 09/06/24 Ordered By: Beau Colon Referrals: Kate Ham MD [Primary Care Provider, Family Practice] Discharge Diet: Advance as tolerated Discharge Activity: Resume usual activity Patient Instructions: Opioid Safety, Pain Management Activity Restrictions/Additional Instructions: Please follow-up with your primary care provider for constipation concerns. Tylenol or ibuprofen for the pain. Print Language: Indian Coding Level of Care Code ED Cable Television Line Technician for Wes Lombardo
--- NOTE | 2024-09-05 23:56 | CTR_ITS ---
PROCEDURE INFORMATION: Exam: CT Maxillofacial Without Contrast Exam date and time: 09/06/2024 12:12 AM Age: 44 years old Clinical indication: Injury or trauma; Blunt trauma (contusions or hematomas); Forehead and nose and jaw; Bilateral; Seizure from standing with fall hitting face first on floor. ; Additional info: Fall R/O facial FX TECHNIQUE: Imaging protocol: Computed tomography of the face without contrast. Radiation optimization: All CT scans at this facility use at least one of these dose optimization techniques: automated exposure control; mA and/or kV adjustment per patient size (includes targeted exams where dose is matched to clinical indication); or iterative reconstruction. COMPARISON: CT facial bones wo con* [id number] 03/03/2022 3:55 PM RADIATION DOSE METRICS: Total DLP (mGy-cm): 571.6 FINDINGS: Paranasal sinuses: No air-fluid levels. Orbital cavities: Orbits are normal. Globes are unremarkable. Bones: No acute fracture. Soft tissues: Unremarkable. CT/CT facial bones wo con* [id number] IMPRESSION: No acute findings.
[2024-09-06 00:23] VITALS: BP 124/87; PULSE 58; RESP 16; O2SAT 97
[2024-09-06 01:42] VITALS: BP 124/78; PULSE 58; O2SAT 99
== END 2024-09-06 01:44 | disposition home or self-care (01) ==
PROVIDERS: Emergency Provider General Practice; PCP Family Medicine
DX: R51.9 Headache, unspecified (principal); F17.210 Nicotine dependence, cigarettes, uncomplicated; W19.XXXA Unspecified fall, initial encounter
CPT/HCPCS: 70486; 99284

== ENCOUNTER 2024-09-19 21:58 | Emergency (ER) | payer MEDICAID, SELFPAY ==
[2024-09-19 22:00] VITALS: BP 131/88; PULSE 74; RESP 16; TEMP 36.4; O2SAT 96; BMI 18.2
--- NOTE | 2024-09-19 22:23 | CTR_ITS ---
PROCEDURE INFORMATION: Exam: CT Head Without Contrast Exam date and time: 09/19/2024 11:00 PM Age: 44 years old Clinical indication: Injury or trauma and condition or disease; Blunt trauma (contusions or hematomas); Convulsions or seizures; Epilepsy; Seizure with fall onto concrete floor. History of epileptic seizure disorder. TECHNIQUE: Imaging protocol: Computed tomography of the head without contrast. Radiation optimization: All CT scans at this facility use at least one of these dose optimization techniques: automated exposure control; mA and/or kV adjustment per patient size (includes targeted exams where dose is matched to clinical indication); or iterative reconstruction. COMPARISON: CT head wo con* [id number] 08/28/2024 11:47 AM RADIATION DOSE METRICS: Total DLP (mGy-cm): 1024.3 FINDINGS: Brain: No focal hemorrhage or midline shift is identified. Cerebral ventricles: No ventriculomegaly or evidence of acute hydrocephalus. Paranasal sinuses: The partially assessed sinuses are grossly clear. Mastoid air cells: Visualized mastoid air cells are well aerated. Bones: Unremarkable. No acute fracture. Soft tissues: Unremarkable. CT/CT head wo con* [id number] IMPRESSION: No acute intracranial abnormality.
[2024-09-19 22:34] LABS: Basophils # 0.1 10^3/uL (0.0-0.1); Basophils % 0.8 %; Eosinophils # 0.2 10^3/uL (0.0-0.8); Eosinophils % 2.4 %; Hematocrit 42.3 % (37-53); Lymphocytes # 2.4 10^3/uL (0.8-4.8); Lymphocytes % 31.2 %; Mean Corpuscular HGB Conc 35.7 g/dL (30-55); Mean Corpuscular Hemoglobin 32.1 pg (27-33); Mean Corpuscular Volume 89.8 fl (82-101); Mean Platelet Volume 9.1 fL (7.4-10.4); Monocytes # 0.8 10^3/uL (0.2-0.9); Monocytes % 9.9 %; Neutrophils # 4.21 10^3/uL (1.8-7.7); Neutrophils % 55.4 %; Nucleated Red Blood Cells % 0 %; Platelet Count 185 10^3/cmm (157-399); Red Blood Count 4.71 10^6/uL (3.85-5.65); Red Cell Distribution Width 11.9 % (12.1-15.1); White Blood Count 7.59 10^3/uL (3.29-11.43)
[2024-09-19 22:53] LABS: Blood Urea Nitrogen 18 mg/dL (6-20); Calcium 9.5 mg/dL (8.5-10.5); Carbon Dioxide 28 mmol/L (22-29); Chloride 99 mmol/L (98-107); Creatine Phosphokinase 44 U/L (39-308); Creatinine Clr Calc Pharmacy 107.4398; Glomerular Filtration Rate 121.4 mL/min (90-130); Glucose 105 mg/dL (65-115); Osmolality Calculated 286 mOsm/kg (285-295); Sodium 137 mmol/L (136-145)
--- NOTE | 2024-09-19 22:54 | CTR_ITS ---
PROCEDURE INFORMATION: Exam: CT Cervical Spine Without Contrast Exam date and time: 09/19/2024 11:02 PM Age: 44 years old Clinical indication: Injury or trauma; Blunt trauma; Seizure with fall onto concrete floor. History of epileptic seizure disorder. ; Additional info: Seizure, head and neck contusion TECHNIQUE: Imaging protocol: Computed tomography of the cervical spine without contrast. Radiation optimization: All CT scans at this facility use at least one of these dose optimization techniques: automated exposure control; mA and/or kV adjustment per patient size (includes targeted exams where dose is matched to clinical indication); or iterative reconstruction. COMPARISON: CT cervical spin wo con* [id number] 03/03/2022 3:55 PM RADIATION DOSE METRICS: Total DLP (mGy-cm): 372.91 FINDINGS: Bones: No acute fracture. Normal alignment. No significant disc bulge or herniation. No severe spinal canal stenosis. No significant neural foraminal narrowing. Mild diffuse degenerative change. Lungs: Emphysematous change. Soft tissues: Unremarkable. CT/CT cervical spin wo con* [id number] IMPRESSION: No acute findings.
[2024-09-19 23:04] LABS: Prolactin 14.52 ng/mL (4.0-15.2)
--- NOTE | 2024-09-19 23:30 | W.ED.SEIZURE ---
HPI - Seizure General: Chief Complaint: Seizure Stated Complaint: SEIZURES Time Seen by Provider: 09/19/24 22:27 History of Present Illness: HPI Narrative: Patient is a 44-year-old gentleman with history of epilepsy that presents due to seizure disorder in [facility]. Patient has received his Keppra, and clobazam, primary seizure medications. Patient states he had 3 absence seizure's, followed by tonic-clonic where he injured the left side of his head, and also was told he hurt the right side of his head. States he did not hit his neck, however is unaware of what happened, and states his neck hurts. Denies any incontinence of urine. Patient had nausea and vomiting times once and then was able to take his nightly medications just prior to arrival. Seizure History: Yes Associated symptoms: Deny chest pain, chills or fever(s) Related Data Home Medications ?Medication ?Instructions ?Recorded ?Confirmed omeprazole 20 mg capsule,delayed 20 mg PO DAILY 02/19/23 08/28/24 release ciprofloxacin HCl 500 mg tablet 500 mg PO DAILY 08/28/24 08/28/24 gabapentin 400 mg capsule See Rx Instructions .Route .COMPLEX 08/28/24 08/28/24 levetiracetam 1,000 mg tablet 1,500 mg PO BID 08/28/24 08/28/24 mupirocin 2 % topical ointment 1 applic topical DAILY 08/28/24 08/28/24 olanzapine 5 mg tablet 5 mg PO QPM 08/28/24 08/28/24 Previous Rx's ?Medication ?Instructions ?Recorded clobazam 20 mg tablet 20 mg PO TID #90 tabs 05/02/24 varenicline tartrate 1 mg tablet See Rx Instructions .Route 08/05/24 .COMPLEX #56 tabs atogepant 60 mg tablet (Qulipta) 60 mg PO DAILY #30 tabs 08/08/24 Allergies Allergy/AdvReac Type Severity Reaction Status Date / Time doxycycline Allergy Unknown Unknown Verified 08/08/24 13:50 Penicillins Allergy ALGY-Hives Verified 08/08/24 13:50 Review of Systems General: Reports: 10 or more systems reviewed and unremarkable except in HPI and below Const: Denies: fever(s) or chills Eyes: Reports: blurry vision; Denies: change in vision ENMT: Denies: throat pain or odynophagia Card: Denies: chest pain or palpitations Resp: Denies: dyspnea or productive cough GI: Denies: abdominal pain, nausea or vomiting : Denies: flank pain or difficulty urinating Musc: Reports: neck pain; Denies: back pain or extremity pain Skin/Breast: Denies: rash or pruritus Neuro: Reports: headache(s); Denies: numbness in extremities, weakness in extremities or difficulty walking Psych: Denies: anxiety or depression PFSH ED PFSH: Medical History History of wound infection required wound care to sores on both knees Pulmonary fungal infection (2021) treated with prolonged course of medication, specific fungi unknown by patient, treated at [facility] PTSD (post-traumatic stress disorder) Lumbar fracture with cord injury Chronic migraine without aura, intractable, with status migrainosus botox treatment Postherpetic neuralgia Tuberculosis (2020) treated with 6 months antibiotics Anxiety and depression Temporal lobe epilepsy Surgical History No history of previous surgery this diagnosis entered into chart 02/19/23 Family History Family/Other Arrhythmia multiple family members with pacemakers (7) Sister CAD (coronary artery disease) cardiac stents Family/Other Family history of premature coronary artery disease uncle near age 50 from heart attack Other Cancer Stroke Social History Smoking and tobacco/nicotine status: current every day tobacco/nicotine user cigarettes Packs smoked per day: 1 Alcohol intake: never Substance/Drug Use: current Substance/Drug use frequency: few times a month service: Yes Current occupational status: disabled Physical Exam Const: COMMON NORMALS: no acute distress, average body habitus, patient oriented x3, alert and well nourished EXAM LIMITATIONS: no altered mental status and no behavioral limitations GENERAL APPEARANCE: cooperative, comfortable and well kempt; not anxious ORIENTATION/CONSCIOUSNESS: Yes awake, Yes oriented to person, Yes oriented to place and Yes oriented to time; not confused HENMT: COMMON NORMALS: normocephalic, hearing grossly normal bilaterally, external ears normal, TM's normal bilaterally, moist oral mucous membranes and oropharynx normal; head/scalp not atraumatic (small contusion left frontal) HEAD & SCALP: normocephalic; not atraumatic (small contusion left frontal) EXTERNAL EAR: Yes external ears normal TYMPANIC MEMBRANE: TM's normal bilaterally Eye: COMMON NORMALS: Equal, round and reactive pupils present, EOMs intact bilaterally, conjunctivae normal and no scleral icterus GENERAL EYE: appearance normal, both eyes and all related structures and normal light reflex VISUAL ACUITY: Yes acuity normal CONJUNCTIVA: Yes conjunctivae normal PUPIL: Yes Equal, round and reactive pupils present DIRECT OPHTHALMOSCOPY: Yes normal light reflex Neck/C-Spine: COMMON NORMALS: full ROM, no lymphadenopathy and no JVD GENERAL: Yes normal visual inspection and Yes trachea midline CERVICAL SPINE: Yes cervical ROM normal Lymph: LYMPHATIC: no lymphadenopathy noted Chest: COMMONS NORMALS: normal inspection of the chest Resp: COMMON NORMALS: normal respiratory effort and clear to auscultation bilaterally AUSCULTATION: clear to auscultation bilaterally Cardio: COMMON NORMALS: no JVD, S1 normal heart sound present and S2 normal heart sound present HEART SOUNDS: S1 normal heart sound present and S2 normal heart sound present GI: COMMON NORMALS: Normal to inspection, nondistended, normoactive bowel sounds present and Soft to palpation INSPECTION: Yes normal to inspection PALPATION: Yes Soft to palpation : COMMON NORMALS: Yes no CVA tenderness BLADDER/KIDNEY EXAM: Yes no CVA tenderness Back/Pelvis: COMMON NORMALS: no CVA tenderness Neuro: COMMON NORMALS: patient oriented x3, CN's II-XII intact bilaterally, moves all extremities, no focal motor deficits and no sensory deficits noted SENSORIUM/ORIENTATION: Yes alert, Yes oriented to person, Yes oriented to place and Yes oriented to time Psych: APPEARANCE: Yes well kempt Course Vital Signs: Vital signs: Vital Signs Temperature 97.6 F 09/19/24 22:00 Pulse Rate 74 09/19/24 22:00 Respiratory Rate 16 09/19/24 22:00 Blood Pressure 131/88 09/19/24 22:00 Pulse Oximetry 96 09/19/24 22:00 Oxygen Delivery Me thod Room Air 09/19/24 22:00 MDM - Seizure MDM Narrative Medical decision making narrative: 44-year-old gentleman with epilepsy that reports to ED with intractable seizure. No seizure concerns were noted with laboratory data, CT of the head and neck are negative. Suspect this is atypical migrainous headache. Suspect stress reaction versus pseudoseizure. Patient will be discharged back to incarceration Differential Diagnosis Seizure Differential Diagnosis: Likely intractable seizure disorder, generalized seizure and status epilepticus Lab Data 09/19/24 22:28 09/19/24 22:28 Labs: Radiology Impressions Head CT 09/19/24 22:23 IMPRESSION: No acute intracranial abnormality. Cervical Spine CT 09/19/24 22:54 IMPRESSION: No acute findings. Laboratory Results WBC 7.59 10^3/uL (3.29-11.43) 09/19/24 22:28 RBC 4.71 10^6/uL (3.85-5.65) 09/19/24 22: Hgb 15.10 g/dL (11.27-16.99) 09/19/24 22:28 Hct 42.3 % (37-53) 09/19/24 22:28 MCV 89.8 fl (82-101) 09/19/24 22:28 MCH 32.1 pg (27-33) 09/19/24 22:28 MCHC 35.7 g/dL (30-55) 09/19/24 22:28 RDW 11.9 % (12.1-15.1) L 09/19/24 22:28 Plt Count 185 10^3/cmm (157-399) 09/19/24 22:28 MPV 9.1 fL (7.4-10.4) 09/19/24 22:28 Neut % (Auto) 55.4 % 09/19/24 22:28 Lymph % (Auto) 31.2 % 09/19/24 22:28 Barry % (Auto) 9.9 % 09/19/24 22:28 Eos % (Auto) 2.4 % 09/19/24 22:28 Baso % (Auto) 0.8 % 09/19/24: Neut # (Auto) 4.21 10^3/uL (1.8-7.7) 09/19/24 22:28 Lymph # (Auto) 2.4 10^3/uL (0.8-4.8) 09/19/24 22:28 Barry # (Auto) 0.8 10^3/uL (0.2-0.9) 09/19/24 22:28 Eos # (Auto) 0.2 10^3/uL (0.0-0.8) 09/19/24 22:28 Baso # (Auto) 0.1 10^3/uL (0.0-0.1) 09/19/24 22:28 Nucleated RBC % (auto) 0 % 09/19/24 22:28 Nucleated RBCs # 0.0 /100WBC 09/19/24 22:28 Sodium 137 mmol/L (136-145) 09/19/24 22:28 Potassium 4.0 mmol/L (3.5-5.1) 09/19/24 22:28 Chloride 99 mmol/L (98-107) 09/19/24 22: Carbon Dioxide 28 mmol/L (22-29) 09/19/24 22:28 Anion Gap 14.0 (5-19) 09/19/24 22:28 BUN 18 mg/dL (6-20) 09/19/24 22:28 Creatinine 0.7 mg/dL (0.7-1.2) 09/19/24 22:28 GFR Calculation 121.4 mL/min (90-130) 09/19/24 22:28 Glucose 105 mg/dL (65-115) 09/19/24 22: Calculated Osmolality 286 mOsm/kg (285-295) 09/19/24 22:28 Calcium 9.5 mg/dL (8.5-10.5) 09/19/24 22:28 Creatine Kinase 44 U/L (39-308) 09/19/24 22:28 Prolactin 14.52 ng/mL (4.0-15.2) 09/19/24 22:28 All radiology interpretation(s) finalized by discharge ED provider radiology interpretation(s): no acute Discharge Plan Discharge Patient Disposition: Home Clinical Impression: Chronic migraine without aura, intractable, with status migrainosus, Encounter for medical screening examination Condition: Stable Prescriptions: No Action clobazam 20 mg tablet 20 mg PO TID Qty: 90 5RF Qulipta 60 mg tablet 60 mg PO DAILY Qty: 30 3RF Rx Instructions: treatment resistant chronic migraine varenicline tartrate 1 mg tablet See Rx Instructions .ROUTE .COMPLEX Qty: 56 3RF Dose Instruction: TAKE ONE TABLET BY MOUTH TWICE DAILY. ALWAYS TAKE WITH FOOD AND NEVER AFTER 4 PM. Rx Instructions: TAKE ONE TABLET BY MOUTH TWICE DAILY. ALWAYS TAKE WITH FOOD AND NEVER AFTER 4 PM. gabapentin 400 mg capsule See Rx Instructions .ROUTE .COMPLEX Rx Instructions: TAKE 1 CAPSULE BY MOUTH ONCE DAILY IN THE MORNING THEN 1 CAP IN THE AFTERNOON THEN 2 CAPS AT BEDTIME ciprofloxacin HCl 500 mg tablet 500 mg PO DAILY mupirocin 2 % ointment 1 applic TOPICAL DAILY levetiracetam 1,000 mg tablet 1,500 mg PO BID Rx Instructions: TAKE 1 & 1/2 (ONE & ONE-HALF) TABLETS BY MOUTH TWICE DAILY olanzapine 5 mg tablet 5 mg PO QPM omeprazole 20 mg capsule,delayed release(DR/EC) 20 mg PO DAILY Discharge Orders: Discharge ED (Routine); Ordered 09/20/24 Ordered By: Monse Thompson Referrals: Kate Ham MD [Primary Care Provider, Family Practice] Discharge Diet: Usual diet Patient Instructions: Acute Headache (ED) Activity Restrictions/Additional Instructions: Take all your medication as directed Return to ED for further issues Print Language: Bhutanese Coding Level of Care Code ED Manager Web Application for Wes Lombardo
[2024-09-20 00:12] VITALS: BP 125/85; PULSE 69; O2SAT 97
[2024-09-20 00:13] VITALS: BP 125/85; PULSE 69; O2SAT 97
== END 2024-09-20 00:14 | disposition home or self-care (01) ==
PROVIDERS: Emergency Medicine; Emergency Provider Physician Assistant; PCP Family Medicine
DX: G43.811 Other migraine, intractable, with status migrainosus (principal); Z00.00 Encounter for general adult medical examination without abnormal findings; F17.210 Nicotine dependence, cigarettes, uncomplicated
CPT/HCPCS: 36415; 70450; 72125; 80048; 82550; 84146; 85025; 99284

== ENCOUNTER → 2024-11-06 08:51 | Outpatient (BNVA) | payer MEDICAID, SELFPAY | PROVIDERS: PCP Family Medicine; Visit Provider Specialist | DX: G43.711 Chronic migraine without aura, intractable, with status migrainosus (principal); G40.109 Localization-related (focal) (partial) symptomatic epilepsy and epileptic syndromes with simple partial seizures, not intractable, without status epilepticus; J18.9 Pneumonia, unspecified organism; A15.9 Respiratory tuberculosis unspecified; R06.02 Shortness of breath; F17.210 Nicotine dependence, cigarettes, uncomplicated; R03.0 Elevated blood-pressure reading, without diagnosis of hypertension | CPT/HCPCS: 64615; 99213; J0585; J9999 ==

== ENCOUNTER → 2024-12-16 09:32 | Outpatient (BNVA) | payer MEDICAID, SELFPAY | PROVIDERS: PCP Family Medicine; Visit Provider Internal Medicine Cardiovascular Disease | DX: I49.5 Sick sinus syndrome (principal); R06.02 Shortness of breath; F17.210 Nicotine dependence, cigarettes, uncomplicated | CPT/HCPCS: 99214 ==

== ENCOUNTER → 2025-02-05 09:41 | Outpatient (BNVA) | payer MEDICAID, SELFPAY | PROVIDERS: PCP Family Medicine; Visit Provider Specialist | DX: G43.711 Chronic migraine without aura, intractable, with status migrainosus (principal) | CPT/HCPCS: 64615; J0585; J9999 ==

== ENCOUNTER → 2025-03-10 07:48 | Outpatient (BNVA) | payer MEDICAID, SELFPAY | PROVIDERS: PCP Family Medicine; Visit Provider Dermatology | DX: L72.8 Other follicular cysts of the skin and subcutaneous tissue (principal); L73.9 Follicular disorder, unspecified; D22.5 Melanocytic nevi of trunk; L81.4 Other melanin hyperpigmentation | CPT/HCPCS: 99203 ==

== ENCOUNTER → 2025-03-25 14:16 | Outpatient (BNVA) | payer MEDICAID, SELFPAY | PROVIDERS: PCP Family Medicine; Visit Provider Dermatology | DX: D48.5 Neoplasm of uncertain behavior of skin (principal); R23.8 Other skin changes; R20.8 Other disturbances of skin sensation | CPT/HCPCS: 11403; 12031 ==